=== PATIENT | male | born 1965 | race Caucasian/White ===

== ENCOUNTER 2016-09-28 10:22 | Emergency (ER) | payer MEDICAID ==
[2016-09-28 10:42] VITALS: RESP 18
[2016-09-28] MEDS ORDERED: SODIUM CHLORIDE 0.9% 1,000 ML IV STA (11:01)
[2016-09-28] MEDS ORDERED: RX INFO: IV CONTRAST WAS GIVEN 1 EACH MISC MISCELLANE PRN (11:01)
[2016-09-28] MEDS ORDERED: MORPHINE SULFATE 4 MG/ML SYRINGE IV STA (11:01)
[2016-09-28] MEDS ORDERED: FAMOTIDINE 20 MG/2 ML VIAL IV STA (11:02)
--- NOTE | 2016-09-28 11:06 | ED ---
General Adult HPI - General Chief complaint: Abdominal Pain Stated complaint: Abdominal Time Seen by Provider: 09/28/16 10:54 Source: patient, RN notes reviewed Mode of arrival: ambulatory Limitations: no limitations - History of Present Illness Initial comments: Patient is a pleasant 50-year-old male presenting to the emergency department complaining of abdominal discomfort. Onset was 2 days ago. Symptoms have progressed since that time however there has been some mild waxing and waning. Patient had mild nausea earlier when discomfort at somewhat worse. Discomfort is mostly left lower abdomen however some right lower abdomen and epigastric region. No fevers. Patient has been somewhat constipated. Patient does have a history of possible left inguinal hernia and has an appointment scheduled for surgeon next month. Patient states the hernia has not been hard. He states sometimes the discomfort does radiate towards the hernia. - Related Data Home Medications Medication Instructions Recorded Confirmed Budesonide-Formot 160-4.5 Mcg 2 puff INHALATION RT-DAILY 09/28/16 09/28/16 [Symbicort 160-4.5 Mcg Inhaler] diphenhydrAMINE [Benadryl] 25 mg PO BID PRN 09/28/16 09/28/16 Previous Rx's Medication Instructions Recorded Ciprofloxacin HCl [Cipro] 500 mg PO Q12HR #20 tablet 09/28/16 Hydrocodone/Acetaminophen [[place] 1 each PO Q4HR PRN #15 tab 09/28/16 5-325] metroNIDAZOLE [Flagyl] 500 mg PO TID #30 tab 09/28/16 Allergies Allergy/AdvReac Type Severity Reaction Status Date / Time No Known Allergies Allergy Verified 09/28/16 10:42 Review of Systems ROS Statement: Those systems with pertinent positive or pertinent negative responses have been documented in the HPI. ROS Other: All systems not noted in ROS Statement are negative. Constitutional: Denies: fever Eyes: Denies: eye pain ENT: Denies: ear pain Respiratory: Denies: cough Cardiovascular: Denies: chest pain Endocrine: Denies: fatigue Gastrointestinal: Reports: abdominal pain, constipation Genitourinary: Denies: dysuria Musculoskeletal: Denies: back pain Skin: Denies: rash Neurological: Denies: weakness Past Medical History Past Medical History: Asthma Additional Past Medical History / Comment(s): hernia History of Any Multi-Drug Resistant Organisms: None Reported Past Surgical History: Hernia Repair Past Psychological History: No Psychological Hx Reported Smoking Status: Never smoker Past Alcohol Use History: Occasional Past Drug Use History: None Reported General Exam Limitations: no limitations General appearance: alert, in no apparent distress Head exam: Present: atraumatic Eye exam: Present: normal appearance, PERRL ENT exam: Present: normal oropharynx Neck exam: Present: normal inspection Respiratory exam: Present: normal lung sounds bilaterally Cardiovascular Exam: Present: regular rate, normal rhythm GI/Abdominal exam: Present: soft, tenderness (Mild epigastric tenderness, mild right lower quadrant tenderness, moderate left lower quadrant tenderness. Mild to moderate left upper abdominal tenderness.), guarding (Mild left lower abdomen ), normal bowel sounds. Absent: distended, rebound, rigid, pulsatile mass exam: Present: other (Left inguinal hernia that is easily reducible with mild to moderate discomfort.). Absent: testicular tenderness, scrotal swelling Extremities exam: Present: normal inspection Neurological exam: Present: alert Psychiatric exam: Present: normal affect, normal mood Skin exam: Absent: rash Course Vital Signs 09/28/16 10:37 Temperature 98.6 F Pulse Rate 89 Respiratory 18 Rate Blood Pressure 123/78 O2 Sat by Pulse 97 Oximetry Medical Decision Making - Medical Decision Making Patient examined and resting comfortably in bed. Patient does still have mild tenderness left lower abdomen. Patient and family updated on results and need for follow-up. Patient is comfortable with discharge. - Lab Data Result diagrams: 09/28/16 11:10 09/28/16 11:10 Lab Results 09/28/16 09/28/16 09/28/16 Range/Units 11:10 11:10 11:10 WBC 12.2 H (3.8-10.6) k/uL RBC 5.05 (4.30-5.90) m/uL Hgb 14.5 (13.0-17.5) gm/dL Hct 42.6 (39.0-53.0) % MCV 84.4 (80.0-100.0) fL MCH 28.7 (25.0-35.0) pg MCHC 34.0 (31.0-37.0) g/dL RDW 12.3 (11.5-15.5) % Plt Count 251 (150-450) k/uL Neutrophils % 81 % Lymphocytes % 10 % Monocytes % 5 % Eosinophils % 2 % Basophils % 0 % Neutrophils # 9.9 H (1.3-7.7) k/uL Lymphocytes # 1.3 (1.0-4.8) k/uL Monocytes # 0.6 (0-1.0) k/uL Eosinophils # 0.3 (0-0.7) k/uL Basophils # 0.0 (0-0.2) k/uL PT 11.1 (9.0-12.0) sec INR 1.1 (<1.1) APTT 25.4 (22.0-30.0) sec Sodium 141 (137-145) mmol/L Potassium 4.2 (3.5-5.1) mmol/L Chloride 102 (98-107) mmol/L Carbon Dioxide 28 (22-30) mmol/L Anion Gap 11 mmol/L BUN 12 (9-20) mg/dL Creatinine 0.98 (0.66-1.25) mg/dL Est GFR (MDRD) Af Amer >60 (>60 ml/min/1.73 sqM) Est GFR (MDRD) Non-Af >60 (>60 ml/min/1.73 sqM) Glucose 102 H (74-99) mg/dL Calcium 8.9 (8.4-10.2) mg/dL Total Bilirubin 0.9 (0.2-1.3) mg/dL AST 18 (17-59) U/L ALT 35 (21-72) U/L Alkaline Phosphatase 47 (38-126) U/L Total Protein 7.2 (6.3-8.2) g/dL Albumin 4.0 (3.5-5.0) g/dL Amylase 57 (30-110) U/L Lipase 67 (23-300) U/L - Radiology Data Radiology results: image reviewed (Computed tomography scan shows diverticulitis ) Disposition Clinical Impression: Diverticulitis Disposition: HOME SELF-CARE Condition: Stable Instructions: Diverticulitis (ED), Inguinal Hernia (ED) Additional Instructions: Please follow-up with primary care physician this week. Please follow-up with Dr. Mijares as planned for hernia. Return for fevers, uncontrolled pain, vomiting, worsening symptoms or any other concerns. [id number] stool softener, Colace 3 times daily for the next week. Prescriptions: Ciprofloxacin HCl [Cipro] 500 mg PO Q12HR #20 tablet Hydrocodone/Acetaminophen [[place] 5-325] 1 each PO Q4HR PRN #15 tab PRN Reason: Pain metroNIDAZOLE [Flagyl] 500 mg PO TID #30 tab Referrals: Yanely Bryant MD [Primary Care Provider] - 1-2 days
[2016-09-28 11:35] LABS: Basophils % (A) 0 %; CH 29.2; CHCM 34.7; Eosinophils # (A) 0.3 k/uL (0-0.7); Eosinophils % (A) 2 %; HCT 42.6 % (39.0-53.0); HDW 2.47; HGB 14.5 gm/dL (13.0-17.5); Luc # (Auto) 0.12; Luc % (Auto) 1; Lymphocytes # (A) 1.3 k/uL (1.0-4.8); Lymphocytes % (A) 10 %; MCH 28.7 pg (25.0-35.0); MCV 84.4 fL (80.0-100.0); Mean Platelet Volume 6.2; Monocytes # (A) 0.6 k/uL (0-1.0); Monocytes % (A) 5 %; Neutrophils # (A) 9.9 k/uL (1.3-7.7); Neutrophils % (A) 81 %; RBC 5.05 m/uL (4.30-5.90); RDW 12.3 % (11.5-15.5); WBC 12.2 k/uL (3.8-10.6); WBC (Perox) 12.27
[2016-09-28 11:49] LABS: ALT 35 U/L (21-72); AST 18 U/L (17-59); Alkaline Phosphatase 47 U/L (38-126); Amylase 57 U/L (30-110); Anion Gap 11 mmol/L; Blood Urea Nitrogen 12 mg/dL (9-20); Calcium 8.9 mg/dL (8.4-10.2); Carbon Dioxide 28 mmol/L (22-30); Chloride 102 mmol/L (98-107); Glucose 102 mg/dL (74-99); Non-African American GFR(MDRD) >60 (>60 ml/min/1.73 sqM); Potassium 4.2 mmol/L (3.5-5.1); Sodium 141 mmol/L (137-145); Total Bilirubin 0.9 mg/dL (0.2-1.3); Total Protein 7.2 g/dL (6.3-8.2)
[2016-09-28 11:50] LABS: INR 1.1 (<1.1); Partial Thromboplastin Time 25.4 sec (22.0-30.0); Prothrombin Time 11.1 sec (9.0-12.0)
--- NOTE | 2016-09-28 12:30 | CT ---
EXAMINATION TYPE: CT abdomen pelvis w con DATE OF EXAM: 09/28/2016 12:08 PM COMPARISON: NONE HISTORY: Abdomen and groin pain. decreased bowel movements CT DLP: 418.8 mGycm CONTRAST: CT scan of the abdomen and pelvis is performed without Oral Contrast and with IV Contrast, patient in jected with 100 mL of Omnipaque 300. FINDINGS: LUNG BASES-: No visible nodule. No infiltrate. LIVER/GB: No calcified gallstones. No space occupying hepatic lesion. Biliary tree is of normal ca liber. PANCREAS: No inflammation. No distinct mass. SPLEEN: No splenic enlargement. No lesion seen. ADRENALS: No nodule. No thickening. KIDNEYS/BLADDER: No hydronephrosis. No nephrolithiasis. No disctinct renal mass. Urinary bladder i s not ideally distended however there is wall thickening this could reflect reactive inflammatory elias nge. BOWEL: Normal appendix. Redundant sigmoid colon demonstrates perisigmoid inflammatory change and wall thickening compatible with acute diverticulitis. No definite abscess identified at this time. Distal esophageal thickening may reflect esophagitis. Correlate clinically. GENITAL ORGANS: No gross abnormality. LYMPH NODES: No greater than 1cm abdominal or pelvic lymph nodes are appreciated. AORTA: No significant abnormality. OSSEOUS STRUCTURES: No significant abnormality is seen. OTHER: Left inguinal fat-containing hernia. IMPRESSION: 1. Sigmoid diverticulitis. No definite abscess or free air at this time. 2. Fat-containing left inguinal hernia. 3. Wall thickening distal esophagus may be related to poor distention versus esophagitis. 4. Wall thickening of the urinary bladder may be related to poor distention and/or reactive inflammat ory change.
[2016-09-28] MEDS ORDERED: HYDROcodone/APAP 5-325MG 1 EACH TAB PO STA (13:00)
[2016-09-28 13:03] LABS: Appearance,Urine Clear (Clear); Bilirubin,Urine Negative (Negative); Glucose,Urine (UA) Negative (Negative); Ketones,Urine Trace (Negative); Leukocyte Esterase,Urine Negative (Negative); Mucus,Urine Few /hpf; Nitrite,Urine Negative (Negative); Particle Count 5132; Protein,Urine 1+ (Negative); RBC,Urine 4 /hpf (0-5); Specific Gravity,Urine 1.024 (1.001-1.035); UA Billing (MACRO vs. MICRO) MICRO; WBC,Urine 3 /hpf (0-5)
[2016-09-28 13:18] VITALS: BP 117/72; PULSE 90; TEMP 97.8
== END 2016-09-28 13:32 | disposition home or self-care (01) ==
LOC: EC 10:22
DX: K57.92 Diverticulitis of intestine, part unspecified, without perforation or abscess without bleeding (principal); K40.90 Unilateral inguinal hernia, without obstruction or gangrene, not specified as recurrent; Z79.899 Other long term (current) drug therapy
CPT/HCPCS: 99284; 96374; 96375; 96361; 36415; 80053; 82150; 83690; 85025; 85610; 85730; 81001; 74177; J2270; Q9967

== ENCOUNTER 2016-09-29 17:51 | Inpatient (IN) | payer MEDICAID ==
[2016-09-29] MEDS ORDERED: ONDANSETRON 4 MG/2 ML VIAL IVP STA (20:09)
[2016-09-29] MEDS ORDERED: SODIUM CHLORIDE 0.9% 1,000 ML IV STA (20:09)
[2016-09-29] MEDS ORDERED: MORPHINE SULFATE 4 MG/ML SYRINGE IV STA (20:09)
--- NOTE | 2016-09-29 20:17 | ED ---
Nausea/Vomiting/Diarrhea HPI - General Chief complaint: Nausea/Vomiting/Diarrhea Stated complaint: Vomiting Time Seen by Provider: 09/29/16 20:03 Source: patient, RN notes reviewed Mode of arrival: ambulatory Limitations: no limitations - History of Present Illness Initial comments: 50-year-old male presents emergency Department chief complaint nausea vomiting abdominal pain. Patient states he was seen here yesterday diagnosed with diverticulitis. Patient states that he was sorry medication yesterday but states his been vomiting for the last 8 hours. Patient states he cannot keep anything down. Patient states that his never taken anything his medications in the past. Patient states he initially did take the Flagyl and pain medication without difficulty though states at the second dose and has been vomiting ever since. Patient denies any known fever. Patient does have left lower quadrant abdominal pain. Patient denies any melena or hematochezia. Patient states he is constipated in which she was advised to take softeners and states he has not had any relief. - Related Data Home Medications Medication Instructions Recorded Confirmed Budesonide-Formot 160-4.5 Mcg 2 puff INHALATION RT-DAILY 09/28/16 09/29/16 [Symbicort 160-4.5 Mcg Inhaler] Docusate [Colace] 300 mg PO BID PRN 09/29/16 09/29/16 Hydrocodone/Acetaminophen [[place] 1 tab PO Q4HR PRN 09/29/16 09/29/16 5-325] Previous Rx's Medication Instructions Recorded Ciprofloxacin HCl [Cipro] 500 mg PO Q12HR #20 tablet 09/28/16 metroNIDAZOLE [Flagyl] 500 mg PO TID #30 tab 09/28/16 Allergies Allergy/AdvReac Type Severity Reaction Status Date / Time No Known Allergies Allergy Verified 09/29/16 20:18 Review of Systems ROS Statement: Those systems with pertinent positive or pertinent negative responses have been documented in the HPI. ROS Other: All systems not noted in ROS Statement are negative. Past Medical History Past Medical History: Asthma Additional Past Medical History / Comment(s): hernia History of Any Multi-Drug Resistant Organisms: None Reported Past Surgical History: Hernia Repair Past Psychological History: No Psychological Hx Reported Smoking Status: Never smoker Past Alcohol Use History: Occasional Past Drug Use History: None Reported General Exam Limitations: no limitations General appearance: alert, in no apparent distress Head exam: Present: atraumatic, normocephalic, normal inspection Respiratory exam: Present: normal lung sounds bilaterally. Absent: respiratory distress, wheezes, rales, rhonchi, stridor Cardiovascular Exam: Present: regular rate, normal rhythm, normal heart sounds. Absent: systolic murmur, diastolic murmur, rubs, gallop, clicks GI/Abdominal exam: Present: soft, tenderness (Moderate tenderness left lower quadrant), normal bowel sounds. Absent: distended, guarding, rebound, rigid Back exam: Absent: CVA tenderness (R), CVA tenderness (L) Course Vital Signs 09/29/16 18:07 Temperature 98.1 F Pulse Rate 75 Respiratory 18 Rate Blood Pressure 128/78 O2 Sat by Pulse 97 Oximetry Medical Decision Making - Lab Data Result diagrams: 09/29/16 20:20 09/29/16 20:20 Lab Results 09/29/16 09/29/16 Range/Units 20:20 20:20 WBC 14.4 H (3.8-10.6) k/uL RBC 4.89 (4.30-5.90) m/uL Hgb 13.8 (13.0-17.5) gm/dL Hct 41.0 (39.0-53.0) % MCV 83.8 (80.0-100.0) fL MCH 28.2 (25.0-35.0) pg MCHC 33.7 (31.0-37.0) g/dL RDW 12.2 (11.5-15.5) % Plt Count 255 (150-450) k/uL Neutrophils % 85 % Lymphocytes % 6 % Monocytes % 6 % Eosinophils % 1 % Basophils % 0 % Neutrophils # 12.3 H (1.3-7.7) k/uL Lymphocytes # 0.9 L (1.0-4.8) k/uL Monocytes # 0.9 (0-1.0) k/uL Eosinophils # 0.1 (0-0.7) k/uL Basophils # 0.0 (0-0.2) k/uL Sodium 142 (137-145) mmol/L Potassium 4.1 (3.5-5.1) mmol/L Chloride 100 (98-107) mmol/L Carbon Dioxide 28 (22-30) mmol/L Anion Gap 14 mmol/L BUN 13 (9-20) mg/dL Creatinine 0.80 (0.66-1.25) mg/dL Est GFR (MDRD) Af Amer >60 (>60 ml/min/1.73 sqM) Est GFR (MDRD) Non-Af >60 (>60 ml/min/1.73 sqM) Glucose 135 H (74-99) mg/dL Calcium 8.9 (8.4-10.2) mg/dL Total Bilirubin 0.7 (0.2-1.3) mg/dL AST 17 (17-59) U/L ALT 34 (21-72) U/L Alkaline Phosphatase 60 (38-126) U/L Total Protein 7.1 (6.3-8.2) g/dL Albumin 4.0 (3.5-5.0) g/dL Amylase 63 (30-110) U/L Lipase 385 H (23-300) U/L Disposition Clinical Impression: Diverticulitis, Abdominal pain Disposition: ADMITTED IP TO THIS [facility] Condition: Stable
[2016-09-29 20:52] LABS: ALT 34 U/L (21-72); AST 17 U/L (17-59); Alkaline Phosphatase 60 U/L (38-126); Amylase 63 U/L (30-110); Anion Gap 14 mmol/L; Blood Urea Nitrogen 13 mg/dL (9-20); Calcium 8.9 mg/dL (8.4-10.2); Carbon Dioxide 28 mmol/L (22-30); Chloride 100 mmol/L (98-107); Glucose 135 mg/dL (74-99); Non-African American GFR(MDRD) >60 (>60 ml/min/1.73 sqM); Potassium 4.1 mmol/L (3.5-5.1); Sodium 142 mmol/L (137-145); Total Bilirubin 0.7 mg/dL (0.2-1.3); Total Protein 7.1 g/dL (6.3-8.2)
[2016-09-29 20:55] LABS: Basophils % (A) 0 %; CH 29.3; CHCM 35.1; Eosinophils # (A) 0.1 k/uL (0-0.7); Eosinophils % (A) 1 %; HDW 2.52; HGB 13.8 gm/dL (13.0-17.5); Luc # (Auto) 0.13; Luc % (Auto) 1; Lymphocytes # (A) 0.9 k/uL (1.0-4.8); Lymphocytes % (A) 6 %; MCH 28.2 pg (25.0-35.0); MCHC 33.7 g/dL (31.0-37.0); MCV 83.8 fL (80.0-100.0); Mean Platelet Volume 6.3; Monocytes # (A) 0.9 k/uL (0-1.0); Monocytes % (A) 6 %; Neutrophils # (A) 12.3 k/uL (1.3-7.7); Neutrophils % (A) 85 %; RBC 4.89 m/uL (4.30-5.90); RDW 12.2 % (11.5-15.5); WBC 14.4 k/uL (3.8-10.6); WBC (Perox) 14.71
--- NOTE | 2016-09-29 21:10 | XR ---
Abdomen HISTORY: Diverticulitis, nausea and vomiting Correlation to CT abdomen pelvis August Lung bases are clear. There is no pneumoperitoneum or bowel obstruction. Large amount of retained fec al debris is present within the colon. CT shows some possible local microperforation. Bone mineraliza tion is within normal limits. IMPRESSION: No pneumoperitoneum. Local microperforation suggested on CT.
[2016-09-29] MEDS ORDERED: metroNIDAZOLE-NS PMX 500 MG in SALINE 1 100ML.BAG IVPB STA (21:14)
[2016-09-29] MEDS ORDERED: LEVOFLOXACIN 750MG-D5W PMX 750 MG in DEXTROSE/WATER 1 150ML.BAG IVPB STA (21:14)
[2016-09-29] MEDS ORDERED: LEVOFLOXACIN 750MG-D5W PMX 750 MG in DEXTROSE/WATER 1 150ML.BAG IVPB SCH (21:15)
[2016-09-29] MEDS ORDERED: NALOXONE 0.4 MG/ML 1 ML VIAL IV PRN (21:23)
[2016-09-30 00:25] VITALS: BMI 25.5
[2016-09-30] MEDS ORDERED: PANTOPRAZOLE 40 MG/10 ML VIAL IVP STA (00:58)
[2016-09-30] MEDS: PANTOPRAZOLE 40 MG/10 ML VIAL IV SCH (01:08)
[2016-09-30] MEDS: SODIUM CHLORIDE 0.9% 1,000 ML IV SCH ×2 (01:16→17:39)
[2016-09-30 01:34] LABS: Appearance,Urine Clear (Clear); Bilirubin,Urine Negative (Negative); Glucose,Urine (UA) Negative (Negative); Ketones,Urine 1+ (Negative); Leukocyte Esterase,Urine Negative (Negative); Mucus,Urine Moderate /hpf; Nitrite,Urine Negative (Negative); Particle Count 7821; Protein,Urine 1+ (Negative); RBC,Urine 1 /hpf (0-5); Specific Gravity,Urine 1.025 (1.001-1.035); UA Billing (MACRO vs. MICRO) MICRO; Urobilinogen,Urine <2.0 mg/dL (<2.0); WBC,Urine 1 /hpf (0-5)
[2016-09-30] MEDS: metroNIDAZOLE-NS PMX 500 MG in SALINE 1 100ML.BAG IVPB SCH ×2 (08:42→17:40)
[2016-09-30] MEDS: MORPHINE SULFATE 4 MG/ML SYRINGE IV PRN ×2 (08:46→17:43)
[2016-09-30] MEDS: ONDANSETRON 4 MG/2 ML VIAL IVP PRN ×2 (11:58→20:29)
--- NOTE | 2016-09-30 11:58 | P.GSCN ---
History of Present Illness Consult date: 09/30/16 Reason for Consult: Diverticulitis History of present illness: Patient with pain that began 3 days ago. He came to the ER for evaluation. He was given oral antibiotics and discharged. At the time a CAT scan suggested diverticulitis with extraluminal air. He was feeling more nauseous with persistent pain and came back to the hospital yesterday. Had a colonoscopy several years ago that he states was normal. No prior attacks of diverticulitis. He does have a left inguinal hernia that he was concerned may have been causing his problems. He has had some recent constipation. No bowel movement for the last few days. He is passing flatus. Review of Systems The patient denies any acute changes in his vision or hearing, no dysphagia or odynophagia, no chest pain or shortness of breath, no dysuria or hematuria, no headache, no runny nose, no rectal bleeding or melena, no unexplained weight loss Past Medical History Past Medical History: Asthma Additional Past Medical History / Comment(s): hernia History of Any Multi-Drug Resistant Organisms: None Reported Past Surgical History: Hernia Repair Past Anesthesia/Blood Transfusion Reactions: No Reported Reaction Past Psychological History: No Psychological Hx Reported Smoking Status: Never smoker Past Alcohol Use History: Occasional Past Drug Use History: None Reported - Past Family History Father Family Medical History: Cancer Medications and Allergies Home Medications Medication Instructions Recorded Confirmed Type Budesonide-Formot 160-4.5 Mcg 2 puff INHALATION RT-DAILY 09/28/16 09/30/16 History [Symbicort 160-4.5 Mcg Inhaler] Docusate [Colace] 300 mg PO BID PRN 09/29/16 09/30/16 History Hydrocodone/Acetaminophen [[place] 1 tab PO Q4HR PRN 09/29/16 09/30/16 History 5-325] Allergies Allergy/AdvReac Type Severity Reaction Status Date / Time No Known Allergies Allergy Verified 09/30/16 00:14 Surgical - Exam Vital Signs Temp Pulse Resp BP Pulse Ox 98.1 F 75 18 128/78 97 09/29/16 18:07 09/29/16 18:07 09/29/16 18:07 09/29/16 18:07 09/29/16 18:07 Physical exam: General: Well-developed, well-nourished HEENT: Normocephalic, sclerae nonicteric Abdomen: Mild supra view tenderness, no rebound or guarding Extremities: No edema Neuro: Alert and oriented Results - Labs 09/29/16 20:20 09/29/16 20:20 Assessment and Plan (1) Diverticulitis Narrative/Plan: Continue clear liquid diet. Continue IV antibiotics. We'll consider follow-up CAT scan in 1 week. Will follow with you. Status: Acute
--- NOTE | 2016-09-30 18:52 | P.HPIM ---
History of Present Illness H&P Date: 09/30/16 Chief Complaint: Acute diverticulitis with microperforation This is a 50-year-old male one of my patient with a previous medical history significant for asthma, GERD, hyperlipidemia, eczema, and diverticulosis patient was in his usual state of health about Wednesday when he came back from work and he developed to have an increased bowel pain associated with nausea and poor appetite, patient ended up going to the emergency department at [facility] and had a computed tomography scan of the abdomen and pelvis with contrast that showed diverticulitis with microperforation patient was started on IV antibiotic in the ER was given IV fluid and IV pain medicine he was sent home on ciprofloxacin and Flagyl and patient was supposed to follow-up with me as an outpatient and underwent week, patient continued to have significant abdominal pain associated with nausea and vomiting not able to keep anything down, patient was contacted yesterday to go to the ER and he was indeed on the way to the emergency department for evaluation and subsequently he was admitted to the hospital because of failed outpatient management. General surgery consultation was obtained from Dr. Mancera. Review of Systems Constitutional: Reports anorexia, Reports malaise, Reports weakness, Denies chills, Denies chronic headaches, Denies chronic pain, Denies fatigue, Denies fever, Denies weight gain, Denies weight loss Eyes: denies blurred vision, denies bulging eye, denies decreased vision, denies diplopia Ears: deny: decreased hearing Ears, nose, mouth and throat: Denies dysphagia, Denies neck fullness/pressure, Denies neck lump, Denies swelling in throat, Denies sore throat Cardiovascular: Denies chest pain, Denies dyspnea on exertion, Denies edema, Denies high blood pressure, Denies paroxysmal nocturnal dyspnea, Denies phlebitis, Denies rapid heart beat, Denies shortness of breath, Denies syncope Respiratory: Denies congestion, Denies cough, Denies cough with sputum, Denies home oxygen, Denies sleep apnea, Denies snoring, Denies wheezing Gastrointestinal: Reports abdominal pain, Reports bloating, Reports change in bowel habits, Reports constipation, Reports excessive gas, Reports indigestion, Reports loss of appetite, Reports nausea, Reports vomiting, Denies BRBPR, Denies diarrhea, Denies dyspepsia, Denies early satiety, Denies hematochezia, Denies jaundice, Denies lactose intolerance, Denies melena Genitourinary: Denies dysuria, Denies nocturia, Denies polyuria Musculoskeletal: Denies myalgias Musculoskeletal: absent: ankle pain, ankle stiffness, ankle swelling, elbow pain , elbow stiffness, elbow swelling, foot pain, foot stiffness, foot swelling, hand pain, hand stiffness, hand swelling, hip pain, hip stiffness, hip swelling , knee pain, knee stiffness, knee swelling, shoulder pain, shoulder stiffness, shoulder swelling, wrist pain, wrist stiffness, wrist swelling Integumentary: Denies pruritus, Denies rash Neurological: Denies numbness, Denies weakness Psychiatric: Denies anxiety, Denies depression Endocrine: Denies fatigue, Denies weight change Past Medical History Past Medical History: Asthma, GERD/Reflux, Hyperlipidemia, Skin Disorder ( Eczema.) Additional Past Medical History / Comment(s): hernia History of Any Multi-Drug Resistant Organisms: None Reported Past Surgical History: Hernia Repair Additional Past Surgical History / Comment(s): Double hernia repair as well as sinus surgery in 2000 Past Anesthesia/Blood Transfusion Reactions: No Reported Reaction Past Psychological History: No Psychological Hx Reported Smoking Status: Never smoker Past Alcohol Use History: Occasional Past Drug Use History: None Reported - Past Family History Father Family Medical History: Cancer (Father at age of 62 from multiple myeloma as well as gastric cancer) Mother Family Medical History: No Reported History (Mother is alive she 75-year-old.) Brother(s) Family Medical History: No Reported History (Patient has 3 brothers no major medical problems.) Sister(s) Family Medical History: No Reported History (Patient has 2 sisters no major medical problems.) Medications and Allergies Home Medications Medication Instructions Recorded Confirmed Type Budesonide-Formot 160-4.5 Mcg 2 puff INHALATION RT-DAILY 09/28/16 09/30/16 History [Symbicort 160-4.5 Mcg Inhaler] Docusate [Colace] 300 mg PO BID PRN 09/29/16 09/30/16 History Hydrocodone/Acetaminophen [[place] 1 tab PO Q4HR PRN 09/29/16 09/30/16 History 5-325] Allergies Allergy/AdvReac Type Severity Reaction Status Date / Time No Known Allergies Allergy Verified 09/30/16 00:14 Physical Exam Vitals: Vital Signs Temp Pulse Pulse Resp BP BP Pulse Ox 09/30/16 15:00 97.4 F L 96 18 111/65 96 09/30/16 07:00 98.2 F 73 18 105/57 96 09/30/16 00:19 98.2 F 78 17 133/85 100 09/29/16 23:58 98.6 F 80 18 122/76 99 09/29/16 21:31 99.4 F 78 18 106/65 95 Intake and Output 09/30/16 09/30/16 09/30/16 06:59 14:59 22:59 Intake Total 300 600 Output Total 500 Balance -200 600 Intake: IV 300 600 Sodium Chloride 0.9% 1, 300 600 000 ml @ 75 mls/hr IV . [id number] [facility] Rx#:[id number] Output: Urine 500 Other: Voiding Method Toilet Toilet Toilet # Voids 1 Weight 73.936 kg - Constitutional General appearance: mild distress, thin - EENT Eyes: anicteric sclerae, disc margins sharp, PERRLA, no ptosis, no scleral icterus, normal appearance ENT: normal oropharynx, no thrush, no tonsillar exudates Ears: bilateral: normal - Neck Neck: no lymphadenopathy, normal ROM, no rigidity, no stridor, no thyromegaly Carotids: bilateral: upstroke normal Thyroid: bilateral: normal size - Respiratory Respiratory: bilateral: diminished, negative: dullness, rales, rhonchi, wheezing , prolonged expiration - Cardiovascular Rhythm: regular Heart sounds: normal: S1, S2 Abnormal Heart Sounds: no systolic murmur, no diastolic murmur, no rub, no S3 Gallop, no S4 Gallop, no click - Gastrointestinal General gastrointestinal: distended, normal bowel sounds, soft, no splenomegaly , tenderness, no umbilical hernia, no ventral hernia Localized gastrointestinal: tender: LLQ, guarding: LLQ, rebound: LLQ - Integumentary Integumentary: normal, normal turgor - Neurologic Neurologic: CNII-XII intact - Musculoskeletal Musculoskeletal: gait normal, generalized weakness, strength equal bilaterally - Psychiatric Psychiatric: A&O x's 3, appropriate affect, intact judgment & insight Results CBC & Chem 7: 09/29/16 20:20 01/31/17 20:20 Thrombosis Risk Factor Assmnt - DVT/VTE Prophylaxis DVT/VTE Prophylaxis: Pharmacologic Prophylaxis ordered, Mechanical Prophylaxis ordered - Choose All That Apply Any of the Below Risk Factors Present?: Yes Each Factor Represents 1 point: Age 41-60 years, Obesity (BMI >25) Other Risk Factors: No Other congenital or acquired thrombophilia - If yes, enter type in comment: No Thrombosis Risk Factor Assessment Total Risk Factor Score: 2 Thrombosis Risk Factor Assessment Level: Low Risk Assessment and Plan Plan: Assessment and plan: 1. Acute diverticulitis with microperforation. Continue Levaquin 750 mg IV piggyback every 24 hours, metronidazole 500 mg IV piggyback every 8 hours, continue on nothing per mouth except for clear liquid diet, continue current pain management, general surgery consultation from Dr. Mancera. Continue current pain management with morphine 4 mg IV push every 4 hours as needed. 2. History of asthma. Continue albuterol 2.5 mg nebulization as needed. 3. History of eczema. Stable at this time. 4. GERD. Continue Protonix 40 mg IV push every 24 hours. 5. Hyperlipidemia. Stable. 6. DVT prophylaxis. Bilateral knee-high GUY hose, heparin 5000 units subcutaneously every 12 hours. 7. GI prophylaxis. Continue Protonix 40 mg IV push every 24 hours. 8. Admit to inpatient. Estimate a length of stay 2 midnights. 9. Patient is full code.
[2016-09-30] MEDS: LEVOFLOXACIN 750MG-D5W PMX 750 MG in DEXTROSE/WATER 1 150ML.BAG IVPB SCH (23:02)
[2016-10-01] MEDS: metroNIDAZOLE-NS PMX 500 MG in SALINE 1 100ML.BAG IVPB SCH ×3 (00:11→16:38)
[2016-10-01] MEDS: ONDANSETRON 4 MG/2 ML VIAL IVP PRN ×2 (07:20→14:30)
[2016-10-01] MEDS: MORPHINE SULFATE 4 MG/ML SYRINGE IV PRN ×2 (07:20→14:30)
[2016-10-01] MEDS: PANTOPRAZOLE 40 MG/10 ML VIAL IV SCH (07:23)
[2016-10-01 09:22] LABS: Basophils % (A) 0 %; CH 28.8; CHCM 33.9; Eosinophils # (A) 0.1 k/uL (0-0.7); Eosinophils % (A) 1 %; HCT 36.7 % (39.0-53.0); HDW 2.65; HGB 12.1 gm/dL (13.0-17.5); Luc # (Auto) 0.14; Luc % (Auto) 1; Lymphocytes # (A) 0.9 k/uL (1.0-4.8); Lymphocytes % (A) 9 %; MCHC 32.9 g/dL (31.0-37.0); MCV 85.2 fL (80.0-100.0); Monocytes # (A) 0.6 k/uL (0-1.0); Monocytes % (A) 6 %; Neutrophils # (A) 8.1 k/uL (1.3-7.7); Neutrophils % (A) 82 %; RBC 4.31 m/uL (4.30-5.90); RDW 12.1 % (11.5-15.5); WBC 9.9 k/uL (3.8-10.6); WBC (Perox) 10.74
[2016-10-01] MEDS: SODIUM CHLORIDE 0.9% 1,000 ML IV SCH ×2 (11:05→19:27)
--- NOTE | 2016-10-01 14:38 | P.PN ---
Subjective Principal diagnosis: Diverticulitis Patient with decreased abdominal pain. White blood cell count normal at 9.9. Denies nausea or vomiting. He is tolerating small volumes of clear liquids. Small amount of flatus. No bowel movements. Complaining of some heartburn. Objective - Vital Signs Vital signs: Vital Signs Temp 98.0 F 10/01/16 07:00 Pulse 72 10/01/16 07:00 Resp 18 10/01/16 07:00 BP 125/69 10/01/16 07:00 Pulse Ox 96 10/01/16 07:00 Intake & Output 09/30/16 10/01/16 10/01/16 18:59 06:59 18:59 Intake Total 600 775 Balance 600 775 Intake: IV 600 775 Levofloxacin 750Mg-D5w 150 Pmx 750 mg In Dextrose/ Water 1 150ml.bag @ 100 mls/hr IVPB Q24H N[facility]O Rx#: [id number] Sodium Chloride 0.9% 1, 600 525 000 ml @ 75 mls/hr IV . [id number] NANDO Rx#:[id number] metroNIDAZOLE-NS PMX 500 100 mg In Saline 1 100ml.bag @ 100 mls/hr IVPB Q8HR NANDO Rx#:[id number] Other: Voiding Method Toilet Toilet Toilet # Voids 1 - Exam Abdomen: Soft, nondistended, mild superpubic tenderness - Labs CBC & Chem 7: 10/01/16 08:55 09/29/16 20:20 Labs: Abnormal Lab Results - Last 24 Hours (Table) 10/01/16 Range/Units 08:55 Hgb 12.1 L (13.0-17.5) gm/dL Hct 36.7 L (39.0-53.0) % Neutrophils # 8.1 H (1.3-7.7) k/uL Lymphocytes # 0.9 L (1.0-4.8) k/uL Assessment and Plan (1) Diverticulitis Narrative/Plan: Continue clear liquids. Continue IV antibiotics. Increase ambulation. Status: Acute
--- NOTE | 2016-10-01 15:53 | P.PN ---
Subjective This is a 50-year-old male one of my patient with a previous medical history significant for asthma, GERD, hyperlipidemia, eczema, and diverticulosis patient was in his usual state of health about Wednesday when he came back from work and he developed to have an increased bowel pain associated with nausea and poor appetite, patient ended up going to the emergency department at [facility] and had a computed tomography scan of the abdomen and pelvis with contrast that showed diverticulitis with microperforation patient was started on IV antibiotic in the ER was given IV fluid and IV pain medicine he was sent home on ciprofloxacin and Flagyl and patient was supposed to follow-up with me as an outpatient and underwent week, patient continued to have significant abdominal pain associated with nausea and vomiting not able to keep anything down, patient was contacted yesterday to go to the ER and he was indeed on the way to the emergency department for evaluation and subsequently he was admitted to the hospital because of failed outpatient management. General surgery consultation was obtained from Dr. Mancera. 10/01: White count is 9.9 and hemoglobin 12.1. His abdominal pain is improved from yesterday. No nausea or vomiting. He is tolerating clear liquids. He is continued on levaquin and flagyl. Objective - Vital Signs Vital signs: Vital Signs Temp 98.0 F 10/01/16 07:00 Pulse 72 10/01/16 07:00 Resp 18 10/01/16 07:00 BP 125/69 10/01/16 07:00 Pulse Ox 96 10/01/16 07:00 Intake & Output 09/30/16 10/01/16 10/01/16 18:59 06:59 18:59 Intake Total 600 775 Balance 600 775 Intake: IV 600 775 Levofloxacin 750Mg-D5w 150 Pmx 750 mg In Dextrose/ Water 1 150ml.bag @ 100 mls/hr IVPB Q24H [facility]O Rx#: [id number] Sodium Chloride 0.9% 1, 600 525 000 ml @ 75 mls/hr IV . [id number] NANDO Rx#:[id number] metroNIDAZOLE-NS PMX 500 100 mg In Saline 1 100ml.bag @ 100 mls/hr IVPB Q8HR NANDO Rx#:[id number] Other: Voiding Method Toilet Toilet Toilet # Voids 1 - Exam General appearance: mild distress, thin - EENT Eyes: anicteric sclerae, disc margins sharp, PERRLA, no ptosis, no scleral icterus, normal appearance ENT: normal oropharynx, no thrush, no tonsillar exudates Ears: bilateral: normal - Neck Neck: no lymphadenopathy, normal ROM, no rigidity, no stridor, no thyromegaly Carotids: bilateral: upstroke normal Thyroid: bilateral: normal size - Respiratory Respiratory: bilateral: diminished, negative: dullness, rales, rhonchi, wheezing , prolonged expiration - Cardiovascular Rhythm: regular Heart sounds: normal: S1, S2 Abnormal Heart Sounds: no systolic murmur, no diastolic murmur, no rub, no S3 Gallop, no S4 Gallop, no click - Gastrointestinal General gastrointestinal: distended, normal bowel sounds, soft, no splenomegaly , tenderness, no umbilical hernia, no ventral hernia Localized gastrointestinal: tender: LLQ, guarding: LLQ, rebound: LLQ - Integumentary Integumentary: normal, normal turgor - Neurologic Neurologic: CNII-XII intact - Musculoskeletal Musculoskeletal: gait normal, generalized weakness, strength equal bilaterally - Psychiatric Psychiatric: A&O x's 3, appropriate affect, intact judgment & insight - Labs CBC & Chem 7: 10/01/16 08:55 09/29/16 20:20 Labs: Abnormal Lab Results - Last 24 Hours (Table) 10/01/16 Range/Units 08:55 Hgb 12.1 L (13.0-17.5) gm/dL Hct 36.7 L (39.0-53.0) % Neutrophils # 8.1 H (1.3-7.7) k/uL Lymphocytes # 0.9 L (1.0-4.8) k/uL Assessment and Plan Plan: 1. Acute diverticulitis with microperforation. Continue Levaquin 750 mg IV piggyback every 24 hours, metronidazole 500 mg IV piggyback every 8 hours, continue clear liquid diet, continue current pain management, general surgery consultation from Dr. Mancera. Continue current pain management with morphine 4 mg IV push every 4 hours as needed. 2. History of asthma. Continue albuterol 2.5 mg nebulization as needed. 3. History of eczema. Stable at this time. 4. GERD. Continue Protonix 40 mg IV push every 24 hours. 5. Hyperlipidemia. Stable. 6. DVT prophylaxis. Bilateral knee-high GUY hose, heparin 5000 units subcutaneously every 12 hours. 7. GI prophylaxis. Continue Protonix 40 mg IV push every 24 hours. 8. Admit to inpatient. Estimate a length of stay 2 midnights. 9. Patient is full code. Discharge plan: Return home Impression and plan of care have been directed as dictated by the signing physician. Olivia Iniguez nurse practitioner acting as scribe for signing physician. Time with Patient: Greater than 30
[2016-10-01] MEDS: LEVOFLOXACIN 750MG-D5W PMX 750 MG in DEXTROSE/WATER 1 150ML.BAG IVPB SCH (22:50)
[2016-10-02] MEDS: metroNIDAZOLE-NS PMX 500 MG in SALINE 1 100ML.BAG IVPB SCH ×4 (00:46→23:41)
[2016-10-02] MEDS: ONDANSETRON 4 MG/2 ML VIAL IVP PRN (02:43)
[2016-10-02] MEDS: SODIUM CHLORIDE 0.9% 1,000 ML IV SCH ×2 (04:07→20:59)
[2016-10-02 07:44] LABS: Basophils % (A) 0 %; CH 28.6; CHCM 33.4; Eosinophils # (A) 0.1 k/uL (0-0.7); Eosinophils % (A) 1 %; HDW 2.74; Luc # (Auto) 0.13; Luc % (Auto) 1; Lymphocytes # (A) 1.4 k/uL (1.0-4.8); Lymphocytes % (A) 15 %; MCH 27.8 pg (25.0-35.0); MCHC 32.4 g/dL (31.0-37.0); MCV 85.9 fL (80.0-100.0); Monocytes # (A) 0.6 k/uL (0-1.0); Monocytes % (A) 6 %; Neutrophils # (A) 6.9 k/uL (1.3-7.7); Neutrophils % (A) 76 %; RBC 4.66 m/uL (4.30-5.90); WBC 9.1 k/uL (3.8-10.6); WBC (Perox) 9.54
[2016-10-02] MEDS: PANTOPRAZOLE 40 MG/10 ML VIAL IV SCH (07:50)
--- NOTE | 2016-10-02 16:17 | P.PN ---
Subjective This is a 50-year-old male one of my patient with a previous medical history significant for asthma, GERD, hyperlipidemia, eczema, and diverticulosis patient was in his usual state of health about Wednesday when he came back from work and he developed to have an increased bowel pain associated with nausea and poor appetite, patient ended up going to the emergency department at [facility] and had a computed tomography scan of the abdomen and pelvis with contrast that showed diverticulitis with microperforation patient was started on IV antibiotic in the ER was given IV fluid and IV pain medicine he was sent home on ciprofloxacin and Flagyl and patient was supposed to follow-up with me as an outpatient and underwent week, patient continued to have significant abdominal pain associated with nausea and vomiting not able to keep anything down, patient was contacted yesterday to go to the ER and he was indeed on the way to the emergency department for evaluation and subsequently he was admitted to the hospital because of failed outpatient management. General surgery consultation was obtained from Dr. Mancera. 10/01: White count is 9.9 and hemoglobin 12.1. His abdominal pain is improved from yesterday. No nausea or vomiting. He is tolerating clear liquids. He is continued on levaquin and flagyl. 10/02: HGB 13, WBC 9. He is tolerating clear liquids and willing to try full liquids which have been ordered for dinner. Objective - Vital Signs Vital signs: Vital Signs Temp 97.8 F 10/02/16 07:00 Pulse 79 10/02/16 07:00 Resp 16 10/02/16 07:00 BP 129/79 10/02/16 07:00 Pulse Ox 96 10/02/16 07:00 Intake & Output 10/01/16 10/02/16 10/02/16 18:59 06:59 18:59 Intake Total 1340 Balance 1340 Intake: IV 850 Levofloxacin 750Mg-D5w 150 Pmx 750 mg In Dextrose/ Water 1 150ml.bag @ 100 mls/hr IVPB Q24H [facility]O Rx#: [id number] Sodium Chloride 0.9% 1, 600 000 ml @ 75 mls/hr IV . [id number] [facility]O Rx#:[id number] metroNIDAZOLE-NS PMX 500 100 mg In Saline 1 100ml.bag @ 100 mls/hr IVPB Q8HR N[facility]O Rx#:[id number] Oral 490 Other: Voiding Method Toilet Toilet Toilet # Voids 1 2 - Exam General appearance: mild distress, thin - EENT Eyes: anicteric sclerae, disc margins sharp, PERRLA, no ptosis, no scleral icterus, normal appearance ENT: normal oropharynx, no thrush, no tonsillar exudates Ears: bilateral: normal - Neck Neck: no lymphadenopathy, normal ROM, no rigidity, no stridor, no thyromegaly Carotids: bilateral: upstroke normal Thyroid: bilateral: normal size - Respiratory Respiratory: bilateral: diminished, negative: dullness, rales, rhonchi, wheezing , prolonged expiration - Cardiovascular Rhythm: regular Heart sounds: normal: S1, S2 Abnormal Heart Sounds: no systolic murmur, no diastolic murmur, no rub, no S3 Gallop, no S4 Gallop, no click - Gastrointestinal General gastrointestinal: distended, normal bowel sounds, soft, no splenomegaly , tenderness, no umbilical hernia, no ventral hernia Localized gastrointestinal: tender: LLQ, guarding: LLQ, rebound: LLQ - Integumentary Integumentary: normal, normal turgor - Neurologic Neurologic: CNII-XII intact - Musculoskeletal Musculoskeletal: gait normal, generalized weakness, strength equal bilaterally - Psychiatric Psychiatric: A&O x's 3, appropriate affect, intact judgment & insight - Labs CBC & Chem 7: 10/02/16 07:07 09/29/16 20:20 Assessment and Plan Plan: 1. Acute diverticulitis with microperforation. Continue Levaquin 750 mg IV piggyback every 24 hours, metronidazole 500 mg IV piggyback every 8 hours, continue full liquid diet, continue current pain management, general surgery consultation from Dr. Mancera. Continue current pain management with morphine 4 mg IV push every 4 hours as needed. 2. History of asthma. Continue albuterol 2.5 mg nebulization as needed. 3. History of eczema. Stable at this time. 4. GERD. Continue Protonix 40 mg IV push every 24 hours. 5. Hyperlipidemia. Stable. 6. DVT prophylaxis. Bilateral knee-high GUY hose, heparin 5000 units subcutaneously every 12 hours. 7. GI prophylaxis. Continue Protonix 40 mg IV push every 24 hours. 8. Admit to inpatient. Estimate a length of stay 2 midnights. 9. Patient is full code. Discharge plan: Return home Impression and plan of care have been directed as dictated by the signing physician. Olivia Iniguez nurse practitioner acting as scribe for signing physician. Time with Patient: Greater than 30
--- NOTE | 2016-10-02 17:32 | P.PN ---
Subjective Principal diagnosis: Diverticulitis Patient doing better today. Pain is improved. He still is passing flatus but no bowel movement. He is ambulating. He is afebrile. Objective - Vital Signs Vital signs: Vital Signs Temp 97.5 F L 10/02/16 16:24 Pulse 83 10/02/16 16:24 Resp 19 10/02/16 16:24 BP 109/57 10/02/16 16:24 Pulse Ox 94 L 10/02/16 16:24 Intake & Output 10/01/16 10/02/16 10/02/16 18:59 06:59 18:59 Intake Total 1340 625 Balance 1340 625 Weight 73.936 kg Intake: IV 850 625 Levofloxacin 750Mg-D5w 150 Pmx 750 mg In Dextrose/ Water 1 150ml.bag @ 100 mls/hr IVPB Q24H [facility] Rx#: [id number] Sodium Chloride 0.9% 1, 600 525 000 ml @ 75 mls/hr IV . [id number] N[facility]O Rx#:[id number] metroNIDAZOLE-NS PMX 500 100 100 mg In Saline 1 100ml.bag @ 100 mls/hr IVPB Q8HR [facility]ANDO Rx#:[id number] Oral 490 Other: Voiding Method Toilet Toilet Toilet # Voids 1 2 - Exam Abdomen: Soft, nondistended, mild left lower quadrant tenderness - Labs CBC & Chem 7: 10/02/16 07:07 09/29/16 20:20 Assessment and Plan (1) Diverticulitis Narrative/Plan: Agree with advancing diet. Continue antibiotics. Hopefully discharge tomorrow. Status: Acute
[2016-10-02] MEDS: LEVOFLOXACIN 750MG-D5W PMX 750 MG in DEXTROSE/WATER 1 150ML.BAG IVPB SCH (20:56)
[2016-10-02 21:16] VITALS: RESP 16
[2016-10-02] MEDS: ACETAMINOPHEN TAB 325 MG TAB PO PRN (23:52)
[2016-10-03] MEDS: ACETAMINOPHEN TAB 325 MG TAB PO PRN ×2 (05:51→12:46)
[2016-10-03 07:34] VITALS: BP 137/85; PULSE 70; TEMP 97.7
[2016-10-03 07:41] LABS: Basophils % (A) 0 %; CH 29.1; CHCM 34.7; Eosinophils # (A) 0.1 k/uL (0-0.7); Eosinophils % (A) 1 %; HCT 34.2 % (39.0-53.0); HDW 2.76; HGB 11.6 gm/dL (13.0-17.5); Luc % (Auto) 1; Lymphocytes # (A) 1.1 k/uL (1.0-4.8); Lymphocytes % (A) 12 %; MCH 28.4 pg (25.0-35.0); MCHC 33.8 g/dL (31.0-37.0); MCV 84.1 fL (80.0-100.0); Mean Platelet Volume 6.8; Monocytes # (A) 0.6 k/uL (0-1.0); Monocytes % (A) 7 %; Neutrophils % (A) 79 %; RBC 4.07 m/uL (4.30-5.90); RDW 12.1 % (11.5-15.5); WBC 8.8 k/uL (3.8-10.6); WBC (Perox) 9.42
[2016-10-03] MEDS: metroNIDAZOLE-NS PMX 500 MG in SALINE 1 100ML.BAG IVPB SCH (09:24)
[2016-10-03] MEDS: SODIUM CHLORIDE 0.9% 1,000 ML IV SCH (09:26)
[2016-10-03] MEDS: PANTOPRAZOLE 40 MG/10 ML VIAL IV SCH (09:27)
--- NOTE | 2016-10-03 12:22 | P.PN ---
Progress Note - Text The patient is complaining of some abdominal pain in the right and left lower quadrants. He states his pain is worsened when he has a bowel movement. On exam as well as signs are stable. His abdomen is soft there is mild tenderness throughout the lower quadrants. There is no rebound or guarding. White count is 8.8. Resolving diverticulitis. I instructed the patient that if he has significant pain that he should become nothing by mouth. He'll be closely observed.
--- NOTE | 2016-10-05 12:27 | P.DS ---
Providers Date of admission: 09/29/16 21:23 Expected date of discharge: 10/03/16 Attending physician: Talha Ackerman Consults: 09/29/16 21:38 Consult Physician Stat Consulting Provider: Cesar Mancera Reason/Comments: Diverticulitis Do you want consulting provider notified?: Yes Primary care physician: Yanely Bryant [facility] Course: This is a 50-year-old male patient of Dr. Bryant with a previous medical history significant for asthma, GERD, hyperlipidemia, eczema, and diverticulosis patient was in his usual state of health about Wednesday when he came back from work and he developed to have an increased bowel pain associated with nausea and poor appetite, patient ended up going to the emergency department at [facility] and had a computed tomography scan of the abdomen and pelvis with contrast that showed diverticulitis with microperforation patient was started on IV antibiotic in the ER was given IV fluid and IV pain medicine he was sent home on ciprofloxacin and Flagyl and patient was supposed to follow-up with me as an outpatient and underwent week, patient continued to have significant abdominal pain associated with nausea and vomiting not able to keep anything down, patient was contacted yesterday to go to the ER and he was indeed on the way to the emergency department for evaluation and subsequently he was admitted to the hospital because of failed outpatient management. General surgery consultation was obtained from Dr. Mancera. 2/2: White count is 9.9 and hemoglobin 12.1. His abdominal pain is improved from yesterday. No nausea or vomiting. He is tolerating clear liquids. He is continued on levaquin and flagyl. 2/3: HGB 13, WBC 9. He is tolerating clear liquids and willing to try full liquids which have been ordered for dinner. 2/4: Patient states his pain is around a 2 or 3. He is tolerating his diet and taking at least 50%-75%. Patient will be discharged home today in stable condition. Discharge diagnoses: 1. Acute diverticulitis with microperforation. 2. History of asthma. 3. History of eczema. 4. GERD. 5. Hyperlipidemia. Discharge plan: Return home Impression and plan of care have been directed as dictated by the signing physician. Olivia Iniguez nurse practitioner acting as scribe for signing physician. Patient Condition at Discharge: Good Plan - Discharge Summary New Discharge Prescriptions: Ciprofloxacin HCl [Cipro] 500 mg PO Q12HR #20 tablet Hydrocodone/Acetaminophen [Shoals 5-325] 1 tab PO Q4HR PRN #60 tablet PRN Reason: Pain metroNIDAZOLE [Flagyl] 500 mg PO TID #30 tab Discharge Medication List Budesonide-Formot 160-4.5 Mcg [Symbicort 160-4.5 Mcg Inhaler] 2 puff INHALATION RT-DAILY 09/28/16 [History] Docusate [Colace] 300 mg PO BID PRN 09/29/16 [History] Ciprofloxacin HCl [Cipro] 500 mg PO Q12HR #20 tablet 10/03/16 [Rx] Hydrocodone/Acetaminophen [Shoals 5-325] 1 tab PO Q4HR PRN #60 tablet 10/03/16 [ Rx] metroNIDAZOLE [Flagyl] 500 mg PO TID #30 tab 10/03/16 [Rx] Follow up Appointment(s)/Referral(s): Yanely Bryant MD [Primary Care Provider] - 1 Week (Patient to call Dr. Bryant's office Wednesday to schedule follow up appointment. The office is closed at time of discharge.) Patient Instructions/Handouts: Ciprofloxacin (By mouth), Hydrocodone/ Acetaminophen (By mouth), Metronidazole (By mouth), Diverticulitis (DC), Acute Abdominal Pain (DC) Discharge Disposition: HOME SELF-CARE
== END 2016-10-03 14:25 | disposition home or self-care (01) | DRG 392 ==
LOC: EC 17:51 → 5MS5E 21:23
PROVIDERS: ADMIT Internal Medicine Geriatric Medicine; ATTEND Internal Medicine Geriatric Medicine
DX: K57.20 Diverticulitis of large intestine with perforation and abscess without bleeding (principal); E78.5 Hyperlipidemia, unspecified; J45.909 Unspecified asthma, uncomplicated; K21.9 Gastro-esophageal reflux disease without esophagitis; L30.9 Dermatitis, unspecified; K40.90 Unilateral inguinal hernia, without obstruction or gangrene, not specified as recurrent; K59.00 Constipation, unspecified; Z79.899 Other long term (current) drug therapy
CPT/HCPCS: 36415; 74000; 80053; 81001; 82150; 83690; 85025; 96361; 96365; 96366; 96375; 99285

== ENCOUNTER → 2016-10-15 | Outpatient (CLI) | payer MEDICAID ==
[2016-10-15 09:33] LABS: Basophils % (A) 0 %; CHCM 32.3; Eosinophils # (A) 0.2 k/uL (0-0.7); Eosinophils % (A) 2 %; HCT 42.3 % (39.0-53.0); HDW 2.76; HGB 13.7 gm/dL (13.0-17.5); Luc # (Auto) 0.18; Luc % (Auto) 2; Lymphocytes # (A) 1.5 k/uL (1.0-4.8); Lymphocytes % (A) 15 %; MCH 28.1 pg (25.0-35.0); MCHC 32.3 g/dL (31.0-37.0); MCV 87.1 fL (80.0-100.0); Monocytes # (A) 0.6 k/uL (0-1.0); Monocytes % (A) 6 %; Neutrophils # (A) 7.5 k/uL (1.3-7.7); Neutrophils % (A) 75 %; RBC 4.86 m/uL (4.30-5.90); RDW 12.8 % (11.5-15.5); WBC (Perox) 9.81
[2016-10-15 09:43] LABS: ALT 89 U/L (21-72); AST 35 U/L (17-59); Alkaline Phosphatase 51 U/L (38-126); Anion Gap 12 mmol/L; Blood Urea Nitrogen 8 mg/dL (9-20); Calcium 9.2 mg/dL (8.4-10.2); Carbon Dioxide 28 mmol/L (22-30); Chloride 103 mmol/L (98-107); Glucose 87 mg/dL (74-99); Non-African American GFR(MDRD) >60 (>60 ml/min/1.73 sqM); Potassium 4.2 mmol/L (3.5-5.1); Sodium 143 mmol/L (137-145); Total Bilirubin 0.6 mg/dL (0.2-1.3); Total Protein 7.3 g/dL (6.3-8.2)
--- NOTE | 2016-10-16 08:32 | CT ---
"EXAMINATION TYPE: CT abdomen pelvis w con DATE OF EXAM: 10/15/2016 5:21 PM COMPARISON: Prior exam August HISTORY: Follow-up for diverticulitis. CT DLP: 1063.00 mGycm Automated exposure control for dose reduction was used. TECHNIQUE: Helical acquisition of images was performed from the lung bases through the pelvis. CONTRAST: Performed with Oral Contrast and with IV Contrast, patient injected with 100 mL of Omnipaque 300. FINDINGS: LUNG BASES: Minimal dependent atelectatic change. No pleural or pericardial effusion. There may be sm all hiatal hernia, some distal esophageal thickening is suspected. LIVER/GB: No significant abnormality is appreciated. PANCREAS: No significant abnormality is seen. SPLEEN: No significant abnormality is seen. ADRENALS: No significant abnormality is seen. KIDNEYS: No significant abnormality is seen. RETROPERITONEAL ADENOPATHY: None visualized REPRODUCTIVE ORGANS: No significant abnormality is seen URINARY BLADDER: No significant abnormality is seen. PELVIC ADENOPATHY: None visualized. OSSEOUS STRUCTURES: No significant abnormality is seen. BOWEL: Abnormal thickening of the rectosigmoid junction, extensive diverticular change again noted w ithin the pelvis. There is a fluid collection present at the site of the previously identified inflam matory change measuring approximately 3.5 x 4.5 x 2.9 cm with thickened wall and central low attenuat ion. There is mass effect on the rectosigmoid junction. OTHER: Aorta is not dilated. INGUINAL HERNIA AGAIN NOTED. IMPRESSION: PELVIC ABSCESS IS PRESENT, FINDINGS CONSISTENT WITH DIVERTICULITIS. A Yellow message has been communicated to Yanely Bryant MD via the [employer] | Critical Result sy stem on 10/16/2016 8:29 AM, Message ID [id number]."
== END | disposition home or self-care (01) ==
LOC: RADCTMAIN 09:06
PROVIDERS: ATTEND Internal Medicine
DX: K65.1 Peritoneal abscess (principal)
CPT/HCPCS: 80053; 85025; 74177; Q9967

== ENCOUNTER 2016-10-19 11:22 | Emergency (ER) | payer MEDICAID ==
[2016-10-19 13:18] LABS: Appearance,Urine Clear (Clear); Bilirubin,Urine Negative (Negative); Glucose,Urine (UA) Negative (Negative); Ketones,Urine Negative (Negative); Leukocyte Esterase,Urine Negative (Negative); Nitrite,Urine Negative (Negative); Protein,Urine Negative (Negative); Specific Gravity,Urine 1.004 (1.001-1.035); UA Billing (MACRO vs. MICRO) CHEM; Urobilinogen,Urine <2.0 mg/dL (<2.0)
[2016-10-19 13:22] LABS: Basophils % (A) 1 %; CH 28.5; Eosinophils # (A) 0.2 k/uL (0-0.7); Eosinophils % (A) 3 %; HCT 41.9 % (39.0-53.0); HDW 2.72; HGB 13.6 gm/dL (13.0-17.5); Luc # (Auto) 0.14; Luc % (Auto) 2; Lymphocytes # (A) 1.3 k/uL (1.0-4.8); Lymphocytes % (A) 21 %; MCH 27.3 pg (25.0-35.0); MCHC 32.4 g/dL (31.0-37.0); MCV 84.1 fL (80.0-100.0); Mean Platelet Volume 5.8; Monocytes # (A) 0.4 k/uL (0-1.0); Monocytes % (A) 7 %; Neutrophils # (A) 4.3 k/uL (1.3-7.7); Neutrophils % (A) 67 %; RBC 4.98 m/uL (4.30-5.90); RDW 12.7 % (11.5-15.5); WBC 6.4 k/uL (3.8-10.6); WBC (Perox) 6.23
[2016-10-19 13:29] LABS: ALT 88 U/L (21-72); AST 43 U/L (17-59); Alkaline Phosphatase 60 U/L (38-126); Amylase 100 U/L (30-110); Anion Gap 11 mmol/L; Blood Urea Nitrogen 14 mg/dL (9-20); Calcium 9.7 mg/dL (8.4-10.2); Carbon Dioxide 29 mmol/L (22-30); Chloride 100 mmol/L (98-107); Glucose 87 mg/dL (74-99); Non-African American GFR(MDRD) >60 (>60 ml/min/1.73 sqM); Potassium 5.3 mmol/L (3.5-5.1); Sodium 140 mmol/L (137-145); Total Bilirubin 0.6 mg/dL (0.2-1.3); Total Protein 7.5 g/dL (6.3-8.2)
--- NOTE | 2016-10-19 13:54 | ED ---
Recheck HPI - General Chief Complaint: Recheck/Abnormal Lab/Rx Stated Complaint: Abdominal Abcess Sent by Annette Time Seen by Provider: 10/19/16 12:15 Source: patient Mode of arrival: ambulatory Limitations: no limitations - History of Present Illness Initial Comments: This patient is a 51-year-old man presenting after he received a call about an abnormal result from a computed tomography scan that he had. Patient states that he had been having some abdominal pain and cramping associated with some diarrhea. He had seen his physician and was sent to have a computed tomography scan. He received a call informing him that there was an abnormal result and he presents here. Patient does state that his symptoms have improved a bit, there is just a little bit of lower abdominal discomfort. Patient denies fever or chills. He is not having any nausea or vomiting. He states that the bowel movements have improved. -: days(s) Returns Today for: Called Because of Abnormal Lab/Test Symptoms Since Prior Visit: no new symptoms, improved Associated Symptoms: abdominal pain - Related Data Home Medications Medication Instructions Recorded Confirmed Budesonide-Formot 160-4.5 Mcg 2 puff INHALATION RT-DAILY 09/28/16 12/23/16 [Symbicort 160-4.5 Mcg Inhaler] Acetaminophen [Tylenol] 1,000 mg PO Q4-6H PRN 10/19/16 12/23/16 Aspirin 81 mg PO DAILY PRN 12/22/16 12/23/16 Glucosamine/Chondro Hernandez A [Cosamin 1 each PO DAILY 12/22/16 12/23/16 Ds Tablet] Ibuprofen [Motrin] 200 - 400 mg PO Q6HR PRN 12/22/16 12/23/16 Multivitamin [Men's Multi-Vitamin] 1 each PO DAILY 12/22/16 12/23/16 Mv-Min/Vit C/Glut/Edith AC/Hc124 1 each PO DAILY 12/22/16 12/23/16 [Airborne Tablet Chewable] Omeprazole [PriLOSEC] 20 mg PO AC-BRKFST 12/22/16 12/23/16 Allergies Allergy/AdvReac Type Severity Reaction Status Date / Time No Known Allergies Allergy Verified 12/22/16 08:53 Review of Systems ROS Statement: Those systems with pertinent positive or pertinent negative responses have been documented in the HPI. ROS Other: All systems not noted in ROS Statement are negative. Constitutional: Denies: fever, chills Respiratory: Denies: cough, dyspnea Cardiovascular: Denies: chest pain, palpitations, syncope Gastrointestinal: Reports: as per HPI, abdominal pain. Denies: nausea, vomiting , diarrhea, constipation Genitourinary: Denies: dysuria, hematuria Musculoskeletal: Denies: back pain Skin: Denies: rash Neurological: Denies: headache, weakness, numbness Past Medical History Past Medical History: Asthma, GERD/Reflux, Hyperlipidemia, Skin Disorder Additional Past Medical History / Comment(s): hernia, diverticulitis History of Any Multi-Drug Resistant Organisms: None Reported Past Surgical History: Hernia Repair Additional Past Surgical History / Comment(s): Double hernia repair as well as sinus surgery in 2000 Past Anesthesia/Blood Transfusion Reactions: No Reported Reaction Past Psychological History: No Psychological Hx Reported Smoking Status: Never smoker Past Alcohol Use History: Occasional Past Drug Use History: None Reported - Past Family History Father Family Medical History: Cancer (Father at age of 62 from multiple myeloma as well as gastric cancer) Mother Family Medical History: No Reported History (Mother is alive she 75-year-old.) Brother(s) Family Medical History: No Reported History (Patient has 3 brothers no major medical problems.) Sister(s) Family Medical History: No Reported History (Patient has 2 sisters no major medical problems.) General Exam Limitations: no limitations General appearance: alert, in no apparent distress Head exam: Present: atraumatic, normocephalic Eye exam: Present: normal appearance Neck exam: Present: normal inspection, full ROM Respiratory exam: Present: normal lung sounds bilaterally. Absent: respiratory distress, wheezes, rales, rhonchi, stridor Cardiovascular Exam: Present: regular rate, normal rhythm, normal heart sounds GI/Abdominal exam: Present: soft, normal bowel sounds. Absent: distended, tenderness, guarding, rebound, rigid, mass, pulsatile mass, hernia Extremities exam: Present: normal inspection, normal capillary refill. Absent: pedal edema, calf tenderness Back exam: Present: normal inspection. Absent: CVA tenderness (R), CVA tenderness (L) Skin exam: Present: warm, dry, intact, normal color. Absent: rash Course Vital Signs 10/19/16 10/19/16 11:24 14:11 Temperature 98.0 F 97.0 F L Pulse Rate 60 95 Respiratory 20 18 Rate Blood Pressure 131/74 114/74 O2 Sat by Pulse 98 97 Oximetry Medical Decision Making - Medical Decision Making This patient is a 50-year-old man who presents after being called regarding CT finding of pelvic abscess. The patient sounds like he had an episode of diverticulitis with the onset approximately 3 weeks ago. He was seen in the emergency department had a course of antibiotics, had surgical follow-up, and then had a CAT scan performed on 10/16/16. He did receive a call today regarding the finding of an abscess located along the sigmoid colon. The patient states that he has been getting better and better since the flareup occurred. Today he is not having any abdominal pain. He is not having fevers or chills. He states that he had been having difficulty with bowel movements but about 48 hours ago things started normalizing. He has had normal bowel movements for the past 2 days, no blood, no constipation or diarrhea. We did perform laboratories and I reviewed the computed tomography scan. I discussed the results with Dr. Boles, who is covering for Dr. mancera. The patient at this point appears stable to see Dr. Mancera in clinic. I discussed this with the patient and he states that given the choice between being admitted in the hospital to be seen by a new surgeon or interventional list, and following up in clinic on Wednesday with Dr. Mancera he would prefer to see Dr. Mancera. I did discuss signs and symptoms requiring his immediate reevaluation for admission. All questions answered. - Lab Data Result diagrams: 10/19/16 13:00 10/19/16 13:00 Lab Results 10/19/16 10/19/16 10/19/16 Range/Units 13:00 13:00 13:00 WBC 6.4 (3.8-10.6) k/uL RBC 4.98 (4.30-5.90) m/uL Hgb 13.6 (13.0-17.5) gm/dL Hct 41.9 (39.0-53.0) % MCV 84.1 (80.0-100.0) fL MCH 27.3 (25.0-35.0) pg MCHC 32.4 (31.0-37.0) g/dL RDW 12.7 (11.5-15.5) % Plt Count 365 (150-450) k/uL Neutrophils % 67 % Lymphocytes % 21 % Monocytes % 7 % Eosinophils % 3 % Basophils % 1 % Neutrophils # 4.3 (1.3-7.7) k/uL Lymphocytes # 1.3 (1.0-4.8) k/uL Monocytes # 0.4 (0-1.0) k/uL Eosinophils # 0.2 (0-0.7) k/uL Basophils # 0.0 (0-0.2) k/uL Sodium 140 (137-145) mmol/L Potassium 5.3 H (3.5-5.1) mmol/L Chloride 100 (98-107) mmol/L Carbon Dioxide 29 (22-30) mmol/L Anion Gap 11 mmol/L BUN 14 (9-20) mg/dL Creatinine 0.85 (0.66-1.25) mg/dL Est GFR (MDRD) Af Amer >60 (>60 ml/min/1.73 sqM) Est GFR (MDRD) Non-Af >60 (>60 ml/min/1.73 sqM) Glucose 87 (74-99) mg/dL Calcium 9.7 (8.4-10.2) mg/dL Total Bilirubin 0.6 (0.2-1.3) mg/dL AST 43 (17-59) U/L ALT 88 H (21-72) U/L Alkaline Phosphatase 60 (38-126) U/L Total Protein 7.5 (6.3-8.2) g/dL Albumin 4.3 (3.5-5.0) g/dL Amylase 100 (30-110) U/L Lipase 168 (23-300) U/L Urine Color Light Yellow Urine Appearance Clear (Clear) Urine pH 7.0 (5.0-8.0) Ur Specific [place] 1.004 (1.001-1.035) Urine Protein Negative (Negative) Urine Glucose (UA) Negative (Negative) Urine Ketones Negative (Negative) Urine Blood Negative (Negative) Urine Nitrate Negative (Negative) Urine Bilirubin Negative (Negative) Urine Urobilinogen <2.0 (<2.0) mg/dL Ur Leukocyte Esterase Negative (Negative) Disposition Clinical Impression: Diverticulitis, Pelvic abscess Disposition: HOME SELF-CARE Condition: Fair Instructions: Abscess (ED), Diverticulosis (ED) Referrals: Yanely Bryant MD [Primary Care Provider] - 1-2 days Cesar Mancera MD [Medical Doctor] - 1-2 days
[2016-10-19 14:13] VITALS: BP 114/74; PULSE 95; RESP 18; TEMP 97
== END 2016-10-19 14:13 | disposition home or self-care (01) ==
LOC: EC 11:22
DX: K65.1 Peritoneal abscess (principal); K57.92 Diverticulitis of intestine, part unspecified, without perforation or abscess without bleeding; J45.909 Unspecified asthma, uncomplicated; K21.9 Gastro-esophageal reflux disease without esophagitis; Z79.51 Long term (current) use of inhaled steroids; Z79.899 Other long term (current) drug therapy; Z87.19 Personal history of other diseases of the digestive system
CPT/HCPCS: 36415; 80053; 81003; 82150; 83690; 85025; 99283

== ENCOUNTER 2016-10-23 08:47 | Day surgery (SDC) | payer MEDICAID ==
[2016-10-23 09:08] VITALS: RESP 18; TEMP 97.7
[2016-10-23] MEDS ORDERED: ALPRAZolam 0.5 MG TAB PO ONE (09:09)
[2016-10-23] MEDS ORDERED: HYDROmorphone 1 MG/ML 1 ML SYRINGE IVP PRN (09:09)
[2016-10-23 09:35] LABS: INR 1.1 (<1.1); Prothrombin Time 11.4 sec (9.0-12.0)
[2016-10-23 10:27] VITALS: BP 113/76; PULSE 59
[2016-10-23] MEDS ORDERED: HYDROmorphone 1 MG/ML 1 ML SYRINGE IVP STA (10:36)
--- NOTE | 2016-10-23 10:59 | CT ---
EXAMINATION TYPE: CT discontinued procedure interventional radiology consultation. DATE OF EXAM: 10/23/2016 10:52 AM COMPARISON: Prior CT 15 October 2016 HISTORY: CT Guided abscess drainage. Procedure discontinued per Dr. Smith. CT DLP: 208 mGycm Automated exposure control for dose reduction was used. By history patient states improvement in prior symptoms. Physical exam shows patient in no apparent d istress. No evident superficial lesion. FINDINGS: Comparison a prior CT scan the fluid collection seen deep within the pelvis has nearly entirely resol aden. Minimal fluid measuring only approximately 15 mm in greatest dimension is suspected. There is in flammatory change. IMPRESSION: IMPROVEMENT IN PATIENT'S PELVIC ABSCESS. NO CT DRAINAGE PERFORMED AT THIS TIME. FOLLOW-UP INDICATE D.
== END 2016-10-23 11:04 | disposition home or self-care (01) ==
LOC: RADPROMAIN 08:47
PROVIDERS: ATTEND Surgery
DX: K65.1 Peritoneal abscess (principal)
CPT/HCPCS: 76380; 85049; 85610

== ENCOUNTER 2016-12-23 06:58 | Day surgery (SDC) | payer MEDICAID ==
[2016-12-22 09:04] VITALS: BMI 39.5
[~2016-12-23 06:58] MED LIST: LACTATED RINGERS 1,000 ML IV SCH
[2016-12-23 07:23] VITALS: TEMP 97.8
[2016-12-23] MEDS ORDERED: PROPOFOL 10 MG/ML 20 ML VIAL IV ONE (07:40)
--- NOTE | 2016-12-23 07:46 | P.GSHP ---
History of Present Illness H&P Date: 12/23/16 Chief Complaint: Change in bowel habits Patient here today for colonoscopy. He has not had one for the last 6 years. He was recently hospitalized with diverticulitis and microperforation. He is having intermittent constipation. Denies rectal bleeding. Pain is now resolved. Past Medical History Past Medical History: Asthma, GERD/Reflux, Hyperlipidemia, Skin Disorder Additional Past Medical History / Comment(s): hernia-left inguinal, diverticulitis-PELVIC ABCESS. History of Any Multi-Drug Resistant Organisms: None Reported Past Surgical History: Hernia Repair Additional Past Surgical History / Comment(s): Double hernia at , sinus surgery in 2000. Past Anesthesia/Blood Transfusion Reactions: No Reported Reaction Additional Past Anesthesia/Blood Transfusion Reaction / Comment(s): took a long time to wake up with nasal surgery Past Psychological History: No Psychological Hx Reported Smoking Status: Never smoker Past Alcohol Use History: Occasional Past Drug Use History: None Reported - Past Family History Father Family Medical History: Cancer Mother Family Medical History: No Reported History Brother(s) Family Medical History: No Reported History Sister(s) Family Medical History: No Reported History Medications and Allergies Home Medications Medication Instructions Recorded Confirmed Type Budesonide-Formot 160-4.5 Mcg 2 puff INHALATION RT-DAILY 09/28/16 12/23/16 History [Symbicort 160-4.5 Mcg Inhaler] Acetaminophen [Tylenol] 1,000 mg PO Q4-6H PRN 10/19/16 12/23/16 History Aspirin 81 mg PO DAILY PRN 12/22/16 12/23/16 History Glucosamine/Chondro Hernandez A [Cosamin 1 each PO DAILY 12/22/16 12/23/16 History Ds Tablet] Ibuprofen [Motrin] 200 - 400 mg PO Q6HR PRN 12/22/16 12/23/16 History Multivitamin [Men's Multi-Vitamin] 1 each PO DAILY 12/22/16 12/23/16 History Mv-Min/Vit C/Glut/Edith AC/Hc124 1 each PO DAILY 12/22/16 12/23/16 History [Airborne Tablet Chewable] Omeprazole [PriLOSEC] 20 mg PO AC-BRKFST 12/22/16 12/23/16 History Allergies Allergy/AdvReac Type Severity Reaction Status Date / Time No Known Allergies Allergy Verified 12/22/16 08:53 Surgical - Exam Vital Signs Temp Pulse Resp BP Pulse Ox 97.8 F 60 20 117/76 96 12/23/16 07:21 12/23/16 07:21 12/23/16 07:21 12/23/16 07:21 12/23/16 07:21 Physical exam: General: Well-developed, well-nourished HEENT: Normocephalic, sclerae nonicteric Abdomen: Nontender, nondistended, reducible left inguinal hernia Extremities: No edema Neuro: Alert and oriented Assessment and Plan (1) Change in bowel habits Narrative/Plan: Will proceed with colonoscopy at this time. Status: Acute
[2016-12-23 08:19] VITALS: RESP 16
[2016-12-23 08:21] VITALS: BP 130/89; PULSE 66
--- NOTE | 2016-12-23 14:32 | FL ---
EXAMINATION TYPE: FL barium enema DATE OF EXAM: 12/23/2016 2:04 PM COMPARISON: NONE HISTORY: INCOMPLETE COLONOSCOPY, DIVERTICULITIS TECHNIQUE: Barium and air were instilled into the colon from the rectum to the cecum. There is reflux into the appendix and terminal ileum. FINDINGS: Slot Floor Attendant view of the abdomen shows overall non-obstructive bowel gas pattern. No evidence of any mass or polyp, obstructing or constricting lesion throughout the colon. There is e vidence of sigmoid diverticulosis with circular muscle hypertrophy seen. No evidence for active diver ticulitis at this time. No evidence for inflammatory bowel disease. Appendix was filled and appeared normal. The terminal ileum was refluxed and appears within normal l imits. IMPRESSION: 1. Sigmoid diverticulosis with circular muscle hypertrophy no evidence for active diverticulitis at t his time. Examination is otherwise unremarkable.
--- NOTE | 2017-01-15 14:00 | PCN ---
DATE OF PROCEDURE: 12/23/2016 PREOPERATIVE DIAGNOSIS: Change in bowel habits. POSTOPERATIVE DIAGNOSIS: Diverticulitis. PROCEDURE: Colonoscopy. ANESTHESIA: Sedation. COMPLICATIONS: None. OPERATIVE PROCEDURE: Patient was brought and placed on the operating room table in the left decubitus position. The patient was sedated per Anesthesia at that time The Olympus colonoscope was inserted in the anus and passed under direct visualization to relation of the midsigmoid. The patient had evidence of some erythema and edema of the mucosa. There was a lack of distensibility of the colon. There were multiple diverticula in this area. This was consistent with subacute diverticulitis. I was unable to advance the scope beyond that point. The scope was withdrawn. No abnormalities were identified in addition to that. The digital rectal examination was normal. PLAN: Will check postoperative barium enema but the patient may benefit from sigmoid colectomy at this point
== END 2016-12-23 09:00 | disposition home or self-care (01) ==
LOC: ORWHC2ENDO 06:58
PROVIDERS: ATTEND Surgery
DX: K57.30 Diverticulosis of large intestine without perforation or abscess without bleeding (principal); K59.00 Constipation, unspecified; R19.4 Change in bowel habit; E78.5 Hyperlipidemia, unspecified; J45.909 Unspecified asthma, uncomplicated; K21.9 Gastro-esophageal reflux disease without esophagitis; Z79.82 Long term (current) use of aspirin; Z79.899 Other long term (current) drug therapy
CPT/HCPCS: 74270; 45378; J2704

== ENCOUNTER → 2017-01-26 | Outpatient (CLI) | payer MEDICAID ==
[2017-01-26 08:37] LABS: EKG EKG PERFORMED
[2017-01-26 09:22] LABS: Anion Gap 9 mmol/L; Carbon Dioxide 29 mmol/L (22-30); Chloride 102 mmol/L (98-107); Potassium 4.4 mmol/L (3.5-5.1); Sodium 140 mmol/L (137-145)
[2017-01-26 09:39] LABS: CH 29.3; CHCM 34.3; HCT 43.5 % (39.0-53.0); HDW 2.44; HGB 14.7 gm/dL (13.0-17.5); MCH 28.9 pg (25.0-35.0); MCHC 33.7 g/dL (31.0-37.0); MCV 85.7 fL (80.0-100.0); Mean Platelet Volume 6.3; RBC 5.08 m/uL (4.30-5.90); RDW 13.3 % (11.5-15.5); WBC 8.4 k/uL (3.8-10.6)
== END | disposition home or self-care (01) ==
LOC: LABPAT 08:14
PROVIDERS: ATTEND Surgery
DX: Z01.812 Encounter for preprocedural laboratory examination (principal); K57.92 Diverticulitis of intestine, part unspecified, without perforation or abscess without bleeding; Z01.810 Encounter for preprocedural cardiovascular examination
CPT/HCPCS: 80051; 85027; 93005

== ENCOUNTER 2017-01-29 06:41 | Inpatient (IN) | payer MEDICAID ==
--- NOTE | 2017-01-15 21:18 | P.GSHP ---
History of Present Illness H&P Date: 01/15/17 Chief Complaint: Chronic recurrent diverticulitis Patient is well-known to our service. He has had at least 2 recent episodes of diverticulitis. He first had diverticulitis 5-6 years ago. A microperforation was identified when he was hospitalized recently. He underwent a recent colonoscopy and at that time the patient's colonic lumen was narrowed and non- distensible. There was some residual erythema. A barium enema also suggested muscular hypertrophy. The patient complains of frequent episodes of left lower quadrant pain. Some narrow stools. Constipation symptoms are persisting as well. No nausea or vomiting currently. No rectal bleeding or melena currently. He does also have asymptomatic left inguinal hernia at present. Past Medical History Past Medical History: Asthma, GERD/Reflux, Hyperlipidemia, Skin Disorder Additional Past Medical History / Comment(s): hernia-left inguinal, diverticulitis-PELVIC ABCESS. History of Any Multi-Drug Resistant Organisms: None Reported Past Surgical History: Hernia Repair Additional Past Surgical History / Comment(s): Double hernia at , sinus surgery in 2000. Past Anesthesia/Blood Transfusion Reactions: No Reported Reaction Additional Past Anesthesia/Blood Transfusion Reaction / Comment(s): took a long time to wake up with nasal surgery Past Psychological History: No Psychological Hx Reported Smoking Status: Never smoker Past Alcohol Use History: Occasional Past Drug Use History: None Reported - Past Family History Father Family Medical History: Cancer (Father at age of 62 from multiple myeloma as well as gastric cancer) Mother Family Medical History: No Reported History (Mother is alive she 75-year-old.) Brother(s) Family Medical History: No Reported History (Patient has 3 brothers no major medical problems.) Sister(s) Family Medical History: No Reported History (Patient has 2 sisters no major medical problems.) Medications and Allergies Home Medications Medication Instructions Recorded Confirmed Type Budesonide-Formot 160-4.5 Mcg 2 puff INHALATION RT-DAILY 09/28/16 12/23/16 History [Symbicort 160-4.5 Mcg Inhaler] Acetaminophen [Tylenol] 1,000 mg PO Q4-6H PRN 10/19/16 12/23/16 History Aspirin 81 mg PO DAILY PRN 12/22/16 12/23/16 History Glucosamine/Chondro Hernandez A [Cosamin 1 each PO DAILY 12/22/16 12/23/16 History Ds Tablet] Ibuprofen [Motrin] 200 - 400 mg PO Q6HR PRN 12/22/16 12/23/16 History Multivitamin [Men's Multi-Vitamin] 1 each PO DAILY 12/22/16 12/23/16 History Mv-Min/Vit C/Glut/Edith AC/Hc124 1 each PO DAILY 12/22/16 12/23/16 History [Airborne Tablet Chewable] Omeprazole [PriLOSEC] 20 mg PO AC-BRKFST 12/22/16 12/23/16 History Allergies Allergy/AdvReac Type Severity Reaction Status Date / Time No Known Allergies Allergy Verified 12/22/16 08:53 Surgical - Exam GENERAL: Well-developed, well-nourished HEENT: Normocephalic, sclera nonicteric, EOM intact, no swelling CHEST: No deformities ABDOMEN: Soft, Mild left lower quadrant tenderness, nondistended EXTREMITIES: No deformities, motor grossly intact NEURO: Awake and alert Assessment and Plan (1) Diverticulitis Narrative/Plan: We'll proceed with laparoscopic sigmoid colectomy, possible Open sigmoid colectomy on 01/29. The risks of bleeding, infection, anastomotic dehiscence, hernia, conversion, ureteral injury were discussed. He understands and wishes to proceed. Status: Acute
[2017-01-20 15:36] VITALS: BMI 22.6
[~2017-01-29 06:41] MED LIST changes: +ALVIMOPAN 12 MG CAPSULE PO ONE; +DEXAMETHASONE SOD PHOSPHATE 10 MG/ML 1 ML VIAL IV ONE; +HEPARIN SODIUM,PORCINE 5,000 UNIT/ML 1 ML VIAL SQ ONE; -LACTATED RINGERS 1,000 ML IV SCH; +ONDANSETRON 4 MG/2 ML VIAL IVP ONE; +ceFAZolin 2 GM in SODIUM CHLORIDE 0.9% 100 ML IVPB ONE; +metroNIDAZOLE-NS PMX 500 MG in SALINE 1 100ML.BAG IVPB ONE
[2017-01-29] MEDS: LACTATED RINGERS 1,000 ML IV SCH ×2 (06:58→23:45)
[2017-01-29] MEDS ORDERED: LIDOCAINE 1% 20 ML VIAL (10MG/ML) FOR IV START INTRADERMA ONE (07:03)
[2017-01-29 07:22] LABS: Basophils % (A) 1 %; CH 29.4; CHCM 35.3; Eosinophils # (A) 0.6 k/uL (0-0.7); Eosinophils % (A) 7 %; HCT 39.1 % (39.0-53.0); HDW 2.46; HGB 13.6 gm/dL (13.0-17.5); Luc # (Auto) 0.18; Luc % (Auto) 2; Lymphocytes # (A) 2.2 k/uL (1.0-4.8); Lymphocytes % (A) 27 %; MCH 29.1 pg (25.0-35.0); MCHC 34.9 g/dL (31.0-37.0); MCV 83.5 fL (80.0-100.0); Mean Platelet Volume 6.2; Monocytes # (A) 0.6 k/uL (0-1.0); Monocytes % (A) 8 %; Neutrophils # (A) 4.5 k/uL (1.3-7.7); Neutrophils % (A) 56 %; RBC 4.69 m/uL (4.30-5.90); RDW 13.1 % (11.5-15.5); WBC 8.1 k/uL (3.8-10.6); WBC (Perox) 8.18
[2017-01-29 07:34] LABS: Potassium 4.1 mmol/L (3.5-5.1)
[2017-01-29] MEDS ORDERED: fentaNYL (PF) 50 MCG/ML 2 ML AMP ONE (07:58)
[2017-01-29] MEDS ORDERED: SUCCINYLCHOLINE CHLORIDE 100 MG/5 ML SYR IV ONE (07:58)
[2017-01-29] MEDS ORDERED: PROPOFOL 10 MG/ML 20 ML VIAL IV ONE (07:58)
[2017-01-29] MEDS ORDERED: MIDAZOLAM 2 MG/2 ML VIAL ONE (07:58)
[2017-01-29] MEDS ORDERED: ROCURONIUM BROMIDE 10 MG/ML 10 ML VIAL IV ONE ×2 (07:58)
[2017-01-29] MEDS ORDERED: GLYCOPYRROLATE 0.2 MG/ML 2 ML VIAL ONE (07:58)
[2017-01-29] MEDS ORDERED: NEOSTIGMINE 1 MG/ML 10 ML VIAL ONE (07:58)
[2017-01-29] MEDS ORDERED: FUROSEMIDE 10 MG/ML 2 ML VIAL ONE (07:58)
[2017-01-29] MEDS ORDERED: LIDOCAINE 1% INJ 10MG/ML (20 ML MDV) ONE (07:58)
[2017-01-29] MEDS ORDERED: PHENYLEPHRINE-0.9% NACL SYG 1 MG/10 ML SYRINGE ONE (07:58)
[2017-01-29] MEDS ORDERED: BUPIVACAIN-EPI 0.25%-1:200,000 30 ML VIAL SQ ONE (08:48)
[2017-01-29] MEDS ORDERED: LACTATED RINGERS 1,000 ML IV ONE ×2 (11:42→12:14)
--- NOTE | 2017-01-29 12:59 | P.OP ---
Date of Procedure: 01/29/17 Preoperative Diagnosis: Postoperative Diagnosis: Procedure(s) Performed: PREOPERATIVE DIAGNOSIS: Chronic diverticulitis POSTOPERATIVE DIAGNOSIS: Same PROCEDURE: Laparoscopic sigmoid colectomy SURGEON: Fiordaliza EBL: 50ML ANESTHESIA: General COMPLICATIONS: None OPERATIVE PROCEDURE: The patient was placed in the operating table in the supine position. He was placed under general anesthesia that time. Patient was then placed in lithotomy. A Stoner catheter was placed. The patient was placed on the huggy vac. The arms were tucked. The abdomen was prepped and draped in the usual sterile fashion. A vertical supraumbilical incision was made using the scalpel. The fascia was retracted anteriorly with Austin forceps. The Veress needle was advanced into the peritoneal cavity and pneumoperitoneum was achieved up to 15 monitor mercury. A 5 mm trocar was then placed. An additional 5 mm trocar was placed in the right upper quadrant as well as a 5 mm trocar in the left upper quadrant. A 12 mm trocar was placed in the right lateral lower quadrant. Using the 30 5 mm scope the pelvis was inspected. The patient had adhesions between the omentum and the left indirect hernia sac. This was lysed using the LigaSure device. The patient was placed in fairly steep Trendelenburg position. The small bowel was swept superiorly. The sigmoid colon was carefully inspected. There were chronic inflammatory changes present with some flimsy adhesions involving the proximal and mid sigmoid colon to the pelvic sidewall and to the anterior pelvis. These were lysed primarily using blunt dissection. As we approached the deeper pelvis just past the sacral promontory near the junction with the rectum there was fairly impressive chronic inflammatory change present that required more tedious dissection. The distal descending colon and sigmoid colon were mobilized from the left pelvic sidewall using a combination of blunt dissection and the LigaSure device. The course of the left ureter was identified and preserved throughout. The course of the right ureter was also identified and preserved. The colon was retracted cephalad and anteriorly. The course of the hypogastric artery was identified. A plane deep to the hypogastric artery was entered and careful dissection took place distally. As we approached the proximal rectum at the cul-de-sac we began our dissection towards the rectal wall. Circumferentially this was cleared of adipose tissue and mesenteric tissue. The bowel was then divided at that location using 2 separate firings of a green load 45 mm Endo YAMILEX. The bowel was unable to be retracted superiorly. The superior hemorrhoidal and sigmoid branches were divided using a combination of 12 mm clips and the white load 45 Endo YAMILEX. We had excellent mobilization of the bowel at this point. A small Pfannenstiel incision was made in the pelvis just to the left of midline. The saphenous fat was divided using a trocar. The anterior rectus fascia was divided horizontally and the rectus musculature was . The small Jose retractor was utilized. The bowel was brought out through this site. A site was chosen proximal to the inflamed segment for anastomosis. There was excellent blood supply to this location. The remainder of the mesentery was divided using electrocautery and the bowel was divided using a blue load 45 Endo YAMILEX. The fat around the proximal colon was then freed and the pursestring adapter was applied and fired. The sizers were utilized. The 25 EEA was chosen. The obturator was placed within the bowel and the pursestring suture was tied down. Again any additional fatty tissue was dissected away from the anastomotic site. The sizer and subsequently the stapler was inserted into the anus and brought up to the staple line. The spike from the EEA stapler was brought out exterior to our staple line. This was then connected to the anvil subsequent tightened and fired. 2 excellent rings were noted. The bowel was clamped proximal to our anastomotic site. The pelvis was irrigated with saline. The bowel was then filled with air using a rigid sigmoidoscope with no evidence of leak. Additional irrigation took place with no evidence of any bleeding. The Pfannenstiel incision had been closed after we reduced our proximal colon back into the abdominal cavity using a running #1 PDS suture. After the pneumoperitoneum was evacuated all incision sites were closed using 4-0 Monocryl sutures and Dermabond. At the end of the procedure the sponge needle and instrument counts were correct. DISPOSITION: Stable to recovery room Implants: Indications for Procedure: Operative Findings: Description of Procedure:
[2017-01-29] MEDS: HYDROmorphone 1 MG/ML 1 ML SYRINGE IVP PRN ×7 (13:04→23:57)
[2017-01-29] MEDS: D5-0.45% NACL WITH KCL 20MEQ/L 1,000 ML IV SCH ×2 (14:24→20:04)
[2017-01-29] MEDS: ONDANSETRON 4 MG/2 ML VIAL IVP PRN ×2 (14:24→21:30)
[2017-01-29] MEDS ORDERED: IPRATROPIUM-ALBUTEROL 3 ML NEB INHALATION PRN (14:35)
[2017-01-29] MEDS: HEPARIN SODIUM,PORCINE 5,000 UNIT/ML 1 ML VIAL SQ SCH ×2 (16:12→23:50)
[2017-01-29] MEDS: METOCLOPRAMIDE 5 MG/ML 2 ML VIAL IVP PRN ×2 (17:57→23:58)
[2017-01-29] MEDS: FAMOTIDINE 20 MG/2 ML VIAL IV SCH (20:04)
[2017-01-30] MEDS: D5-0.45% NACL WITH KCL 20MEQ/L 1,000 ML IV SCH ×3 (05:04→23:33)
[2017-01-30] MEDS: HYDROmorphone 1 MG/ML 1 ML SYRINGE IVP PRN ×6 (05:12→23:37)
[2017-01-30] MEDS: ONDANSETRON 4 MG/2 ML VIAL IVP PRN ×2 (06:37→19:41)
[2017-01-30 07:29] LABS: Basophils % (A) 0 %; CH 29.5; CHCM 35.6; Eosinophils % (A) 0 %; HCT 36.4 % (39.0-53.0); HDW 2.56; HGB 12.7 gm/dL (13.0-17.5); Luc # (Auto) 0.18; Luc % (Auto) 2; Lymphocytes # (A) 1.2 k/uL (1.0-4.8); Lymphocytes % (A) 10 %; MCHC 34.9 g/dL (31.0-37.0); MCV 83.1 fL (80.0-100.0); Mean Platelet Volume 6.2; Monocytes % (A) 8 %; Neutrophils # (A) 9.7 k/uL (1.3-7.7); Neutrophils % (A) 80 %; RBC 4.38 m/uL (4.30-5.90); RDW 12.8 % (11.5-15.5); WBC 12.1 k/uL (3.8-10.6); WBC (Perox) 12.56
[2017-01-30 07:41] LABS: Anion Gap 6 mmol/L; Blood Urea Nitrogen 9 mg/dL (9-20); Calcium 8.3 mg/dL (8.4-10.2); Carbon Dioxide 26 mmol/L (22-30); Chloride 105 mmol/L (98-107); Glucose 139 mg/dL (74-99); Non-African American GFR(MDRD) >60 (>60 ml/min/1.73 sqM); Potassium 4.5 mmol/L (3.5-5.1); Sodium 137 mmol/L (137-145)
[2017-01-30] MEDS: SYMBICORT 160-4.5 MCG INHALER INHALATION SCH (07:52)
[2017-01-30] MEDS: HEPARIN SODIUM,PORCINE 5,000 UNIT/ML 1 ML VIAL SQ SCH ×3 (08:16→23:32)
[2017-01-30] MEDS: FAMOTIDINE 20 MG/2 ML VIAL IV SCH ×2 (08:17→20:33)
[2017-01-30] MEDS: ALVIMOPAN 12 MG CAPSULE PO SCH ×2 (08:17→20:33)
--- NOTE | 2017-01-30 08:39 | P.CONS ---
History of Present Illness - Reason for Consult Consult date: 01/29/17 Medical management Requesting physician: Cesra Quan - Chief Complaint Chronic diverticulitis post laparoscopic sigmoid colectomy. - History of Present Illness his is a 51-year-old male one of my patient with a previous medical history significant for asthma, GERD, hyperlipidemia, eczema, and diverticulosis patient was hospitalized back in September 2016 for acute episode of diverticulitis and at that time he was treated with IV antibiotic and had a computed tomography scan at that time that showed a microperforation patient also had suffered from significant diverticulitis about 5-6 years ago, patient was seen as a follow-up with Dr. flores and attempted colonoscopy showed a significant stenosis of the abdomen with the muscular hypertrophy after he underwent barium enema was recommended for the patient to go for laparoscopic sigmoid colectomy that was done today by Dr. quan and we were asked to see the patient for medical management. Review of Systems Constitutional: Denies chronic headaches, Denies fever, Denies lethargy, Denies weakness, Denies weight gain, Denies weight loss Eyes: denies blurred vision, denies bulging eye, denies decreased vision, denies diplopia, denies discharge Ears: deny: decreased hearing Ears, nose, mouth and throat: Denies dysphagia, Denies neck lump, Denies swelling in throat, Denies sore throat Cardiovascular: Denies chest pain, Denies dyspnea on exertion, Denies paroxysmal nocturnal dyspnea, Denies phlebitis, Denies rapid heart beat, Denies shortness of breath, Denies syncope Respiratory: Denies congestion, Denies cough with sputum, Denies hemoptysis, Denies home oxygen, Denies sleep apnea, Denies snoring, Denies wheezing Gastrointestinal: Reports abdominal pain, Reports nausea, Denies bloating, Denies vomiting Genitourinary: Denies dysuria Musculoskeletal: Denies myalgias Musculoskeletal: absent: ankle pain, ankle stiffness, ankle swelling, elbow pain , elbow stiffness, elbow swelling, foot pain, foot stiffness, foot swelling, hand pain, hand stiffness, hand swelling, hip pain, hip stiffness, hip swelling , knee pain, knee stiffness, knee swelling, shoulder pain, shoulder stiffness, shoulder swelling, wrist pain, wrist stiffness, wrist swelling Integumentary: Denies pruritus, Denies rash Neurological: Denies numbness, Denies weakness Psychiatric: Denies anxiety, Denies depression Endocrine: Denies fatigue, Denies weight change Past Medical History Past Medical History: Asthma, GERD/Reflux, Skin Disorder Additional Past Medical History / Comment(s): Hernia-left inguinal. Diverticulitis-PELVIC ABCESS. PALMS OF HANDS DRY, FLAKING. History of Any Multi-Drug Resistant Organisms: None Reported Past Surgical History: Hernia Repair Additional Past Surgical History / Comment(s): Double hernia at . Sinus surgery in 2000. COLONOSCOPY, laparoscopic sigmoid colectomy. Past Anesthesia/Blood Transfusion Reactions: Previous Problems w/ Anesthesia Additional Past Anesthesia/Blood Transfusion Reaction / Comm: Took a long time to wake up with nasal surgery. Past Psychological History: No Psychological Hx Reported Smoking Status: Never smoker Past Alcohol Use History: Occasional Past Drug Use History: None Reported - Past Family History Father Family Medical History: Cancer Mother Family Medical History: No Reported History Brother(s) Family Medical History: No Reported History Sister(s) Family Medical History: No Reported History Medications and Allergies Home Medications Medication Instructions Recorded Confirmed Type Budesonide-Formot 160-4.5 Mcg 2 puff INHALATION RT-DAILY 09/28/16 01/29/17 History [Symbicort 160-4.5 Mcg Inhaler] Acetaminophen [Tylenol] 1,000 mg PO Q4-6H PRN 10/19/16 01/29/17 History Aspirin 81 mg PO DAILY PRN 12/22/16 01/20/17 History Glucosamine/Chondro Hernandez A [Cosamin 1 each PO DAILY 12/22/16 01/20/17 History Ds Tablet] Ibuprofen [Motrin] 200 - 400 mg PO Q6HR PRN 12/22/16 01/20/17 History Multivitamin [Men's Multi-Vitamin] 1 each PO DAILY 12/22/16 01/20/17 History Mv-Min/Vit C/Glut/Lysine/Hc124 1 each PO DAILY 12/22/16 01/29/17 History [Airborne Tablet Chewable] Omeprazole [PriLOSEC] 20 mg PO AC-BRKFST 12/22/16 01/29/17 History Allergies Allergy/AdvReac Type Severity Reaction Status Date / Time No Known Allergies Allergy Verified 01/20/17 15:11 Physical Exam Vitals: Vital Signs Temp Pulse Pulse Resp BP BP Pulse Ox 01/29/17 13:28 14 99 01/29/17 13:15 81 14 129/78 99 01/29/17 13:00 81 14 132/79 100 01/29/17 12:45 82 16 129/76 100 01/29/17 12:36 97.8 F 87 16 133/77 100 01/29/17 07:00 97.6 F 68 16 131/87 99 Intake and Output 01/28/17 01/29/17 01/29/17 22:59 06:59 14:59 Intake Total 300 2200 Output Total 250 Balance 300 1950 Intake: IV 300 2200 Output: Urine 200 Estimated Blood Loss 50 - Constitutional General appearance: mild distress - EENT Eyes: anicteric sclerae, EOMI, PERRLA, no ptosis, no scleral icterus, normal appearance ENT: hearing grossly normal, NA/AT, normal oropharynx, no thrush Ears: bilateral: normal - Neck Neck: no lymphadenopathy, normal ROM, no rigidity, no stridor, no thyromegaly Carotids: bilateral: upstroke normal Thyroid: bilateral: normal size - Respiratory Respiratory: bilateral: diminished, negative: dullness, rales, rhonchi, wheezing , prolonged expiration, prolonged inspiration - Cardiovascular Rhythm: regular Heart sounds: normal: S1, S2 Abnormal Heart Sounds: no systolic murmur, no S3 Gallop, no S4 Gallop, no click - Gastrointestinal General gastrointestinal: decreased bowel sounds, soft, tenderness - Integumentary Integumentary: normal, normal turgor - Neurologic Neurologic: CNII-XII intact - Musculoskeletal Musculoskeletal: strength equal bilaterally - Psychiatric Psychiatric: A&O x's 3, appropriate affect, intact judgment & insight Results CBC & Chem 7: 01/29/17 07:10 01/29/17 07:03 Assessment and Plan Plan: Assessment and plan: 1. Postoperative day #0 status post laparoscopic assisted sigmoid colectomy as a treatment for chronic diverticulitis with microperforation of the sigmoid colon. Patient was instructed about the use of incentive spirometer, continue IV fluid, continue current pain management as outlined by general surgery, continue DVT prophylaxis, continue to monitor the patient CBC and CMP the next 24 hours, continue IV antibiotic. 2. History of asthma. Continue albuterol 2.5 mg nebulization as needed. 3. History of eczema. Stable at this time. 4. GERD. Continue Protonix 40 mg IV push every 24 hours. 5. Hyperlipidemia. Stable. 6. DVT prophylaxis. Bilateral knee-high GUY hose, heparin 5000 units subcutaneously every 12 hours. 7. GI prophylaxis. Continue Protonix 40 mg IV push every 24 hours[address] you Dr[address] Quan for allowing me to participate in the care of your patient we will continue to follow the patient along with you.
[2017-01-30] MEDS: METOCLOPRAMIDE 5 MG/ML 2 ML VIAL IVP PRN (10:27)
--- NOTE | 2017-01-30 10:58 | P.PN ---
Subjective This is a 51-year-old male one of my patient with a previous medical history significant for asthma, GERD, hyperlipidemia, eczema, and diverticulosis patient was hospitalized back in September 2016 for acute episode of diverticulitis and at that time he was treated with IV antibiotic and had a computed tomography scan at that time that showed a microperforation patient also had suffered from significant diverticulitis about 5-6 years ago, patient was seen as a follow-up with Dr. Edmonds and attempted colonoscopy showed a significant stenosis of the abdomen with the muscular hypertrophy after he underwent barium enema was recommended for the patient to go for laparoscopic sigmoid colectomy that was done today by Dr. quan and we were asked to see the patient for medical management. 01/30: Patient states he is burping but has not passed any gas. He has been afebrile. Pulse ox is 97% on room air. IV fluids will be decreased to 75 mL per hour. Pain is currently well controlled. Objective - Vital Signs Vital signs: Vital Signs Temp 97.4 F L 01/30/17 07:00 Pulse 71 01/30/17 07:00 Resp 16 01/30/17 07:00 BP 115/64 01/30/17 07:00 Pulse Ox 96 01/30/17 07:00 Intake & Output 01/29/17 01/30/17 01/30/17 18:59 06:59 18:59 Intake Total 2750 1250 Output Total 400 2200 Balance 2350 -950 Intake: IV 2750 1250 D5-0.45% NaCl with KCl 1250 20Meq/l 1,000 ml @ 125 mls/hr IV .Q8H [facility] Rx#: [id number] Output: Urine 350 2200 Uretheral (Stoner) 2200 Estimated Blood Loss 50 Other: Voiding Method Indwelling Catheter Indwelling Catheter - Exam General appearance: mild distress - EENT Eyes: anicteric sclerae, EOMI, PERRLA, no ptosis, no scleral icterus, normal appearance ENT: hearing grossly normal, NA/AT, normal oropharynx, no thrush Ears: bilateral: normal - Neck Neck: no lymphadenopathy, normal ROM, no rigidity, no stridor, no thyromegaly Carotids: bilateral: upstroke normal Thyroid: bilateral: normal size - Respiratory Respiratory: bilateral: diminished, negative: dullness, rales, rhonchi, wheezing , prolonged expiration, prolonged inspiration - Cardiovascular Rhythm: regular Heart sounds: normal: S1, S2 Abnormal Heart Sounds: no systolic murmur, no S3 Gallop, no S4 Gallop, no click - Gastrointestinal General gastrointestinal: decreased bowel sounds, soft, tenderness - Integumentary Integumentary: normal, normal turgor - Neurologic Neurologic: CNII-XII intact - Musculoskeletal Musculoskeletal: strength equal bilaterally - Psychiatric Psychiatric: A&O x's 3, appropriate affect, intact judgment & insight - Labs CBC & Chem 7: 01/30/17 06:34 01/30/17 06:34 Labs: Abnormal Lab Results - Last 24 Hours (Table) 01/30/17 01/30/17 Range/Units 06:34 06:34 WBC 12.1 H (3.8-10.6) k/uL Hgb 12.7 L (13.0-17.5) gm/dL Hct 36.4 L (39.0-53.0) % Neutrophils # 9.7 H (1.3-7.7) k/uL Glucose 139 H (74-99) mg/dL Calcium 8.3 L (8.4-10.2) mg/dL Assessment and Plan Plan: 1. Status post laparoscopic assisted sigmoid colectomy as a treatment for chronic diverticulitis with microperforation of the sigmoid colon. Patient was instructed about the use of incentive spirometer, continue IV fluid, continue current pain management as outlined by general surgery, continue DVT prophylaxis , continue to monitor the patient CBC and CMP the next 24 hours, continue IV antibiotic. 2. History of asthma. Continue albuterol 2.5 mg nebulization as needed. 3. History of eczema. Stable at this time. 4. GERD. Continue Protonix 40 mg IV push every 24 hours. 5. Hyperlipidemia. Stable. 6. DVT prophylaxis. Bilateral knee-high GUY hose, heparin 5000 units subcutaneously every 12 hours. 7. GI prophylaxis. Continue Protonix 40 mg IV push every 24 hours. Discharge plan: Return home Impression and plan of care have been directed as dictated by the signing physician. Olivia Iniguez nurse practitioner acting as scribe for signing physician.
--- NOTE | 2017-01-30 11:28 | P.PN ---
Subjective Principal diagnosis: Postoperative day 1 laparoscopic sigmoid colectomy The patient is having some nausea and vomiting. He did vomit up his entereg. He did ambulate in the crook last night. None this morning because he feels weak. Objective - Vital Signs Vital signs: Vital Signs Temp 97.4 F L 01/30/17 07:00 Pulse 71 01/30/17 07:00 Resp 16 01/30/17 07:00 BP 115/64 01/30/17 07:00 Pulse Ox 96 01/30/17 07:00 Intake & Output 01/29/17 01/30/17 01/30/17 18:59 06:59 18:59 Intake Total 2750 1250 400 Output Total 400 2200 500 Balance 2350 -950 -100 Intake: IV 2750 1250 D5-0.45% NaCl with KCl 1250 20Meq/l 1,000 ml @ 125 mls/hr IV .Q8H [facility] Rx#: [id number] Oral 400 Output: Urine 350 2200 500 Uretheral (Stoner) 2200 500 Estimated Blood Loss 50 Other: Voiding Method Indwelling Catheter Indwelling Catheter Indwelling Catheter - Constitutional General appearance: Present: cooperative, mild distress (Appears uncomfortable) - Respiratory Respiratory: bilateral: CTA, diminished (At the bases), negative: rhonchi, wheezing - Cardiovascular Rhythm: regular - Gastrointestinal General gastrointestinal: Present: absent bowel sounds, soft Localized gastrointestinal: surgical scar: diffuse (Dressing is intact clean and dry) - Labs CBC & Chem 7: 01/30/17 06:34 01/30/17 06:34 Labs: Abnormal Lab Results - Last 24 Hours (Table) 01/30/17 01/30/17 Range/Units 06:34 06:34 WBC 12.1 H (3.8-10.6) k/uL Hgb 12.7 L (13.0-17.5) gm/dL Hct 36.4 L (39.0-53.0) % Neutrophils # 9.7 H (1.3-7.7) k/uL Glucose 139 H (74-99) mg/dL Calcium 8.3 L (8.4-10.2) mg/dL Assessment and Plan (1) Diverticulitis Status: Acute (2) Nausea and vomiting Status: Acute Plan: We'll change the Reglan to scheduled. If he continues to vomit he may need an NG tube placed. Encouraged activity. Small amounts of liquids is ice chips or sips as needed. Questions encouraged and answered. Progressing slowly.
[2017-01-30] MEDS: METOCLOPRAMIDE 5 MG/ML 2 ML VIAL IVP SCH ×3 (13:19→23:33)
[2017-01-31] MEDS: D5-0.45% NACL WITH KCL 20MEQ/L 1,000 ML IV SCH (03:27)
[2017-01-31] MEDS: ONDANSETRON 4 MG/2 ML VIAL IVP PRN (03:28)
[2017-01-31] MEDS: HYDROmorphone 1 MG/ML 1 ML SYRINGE IVP PRN ×6 (03:30→22:00)
[2017-01-31] MEDS: METOCLOPRAMIDE 5 MG/ML 2 ML VIAL IVP SCH ×4 (06:02→23:11)
[2017-01-31 07:23] LABS: Basophils % (A) 0 %; CH 29.2; CHCM 35.1; Eosinophils % (A) 1 %; HCT 35.8 % (39.0-53.0); HDW 2.58; HGB 12.5 gm/dL (13.0-17.5); Luc # (Auto) 0.11; Luc % (Auto) 1; Lymphocytes # (A) 1.6 k/uL (1.0-4.8); Lymphocytes % (A) 19 %; MCHC 34.8 g/dL (31.0-37.0); MCV 83.4 fL (80.0-100.0); Mean Platelet Volume 6.3; Monocytes # (A) 0.7 k/uL (0-1.0); Monocytes % (A) 8 %; Neutrophils # (A) 6.1 k/uL (1.3-7.7); Neutrophils % (A) 71 %; RBC 4.29 m/uL (4.30-5.90); RDW 12.8 % (11.5-15.5); WBC 8.6 k/uL (3.8-10.6); WBC (Perox) 9.17
[2017-01-31 07:34] LABS: Anion Gap 8 mmol/L; Blood Urea Nitrogen 9 mg/dL (9-20); Calcium 8.5 mg/dL (8.4-10.2); Carbon Dioxide 27 mmol/L (22-30); Chloride 105 mmol/L (98-107); Glucose 104 mg/dL (74-99); Non-African American GFR(MDRD) >60 (>60 ml/min/1.73 sqM); Potassium 4.1 mmol/L (3.5-5.1); Sodium 140 mmol/L (137-145)
[2017-01-31] MEDS: SYMBICORT 160-4.5 MCG INHALER INHALATION SCH (07:51)
[2017-01-31] MEDS: HEPARIN SODIUM,PORCINE 5,000 UNIT/ML 1 ML VIAL SQ SCH ×3 (08:13→23:11)
[2017-01-31] MEDS: ALVIMOPAN 12 MG CAPSULE PO SCH ×2 (08:13→20:42)
[2017-01-31] MEDS: FAMOTIDINE 20 MG/2 ML VIAL IV SCH ×2 (09:08→20:42)
--- NOTE | 2017-01-31 09:38 | P.PN ---
Subjective This is a 51-year-old male one of my patient with a previous medical history significant for asthma, GERD, hyperlipidemia, eczema, and diverticulosis patient was hospitalized back in September 2016 for acute episode of diverticulitis and at that time he was treated with IV antibiotic and had a computed tomography scan at that time that showed a microperforation patient also had suffered from significant diverticulitis about 5-6 years ago, patient was seen as a follow-up with Dr. Edmonds and attempted colonoscopy showed a significant stenosis of the abdomen with the muscular hypertrophy after he underwent barium enema was recommended for the patient to go for laparoscopic sigmoid colectomy that was done today by Dr. quan and we were asked to see the patient for medical management. 01/30: Patient states he is burping but has not passed any gas. He has been afebrile. Pulse ox is 97% on room air. IV fluids will be decreased to 75 mL per hour. Pain is currently well controlled. 01/31: Patient is tolerating clear liquid diet. He states he ambulated multiple times yesterday around the floor as taking a shower this morning. No bowel movement. He has been hemodynamically stable and afebrile. Objective - Vital Signs Vital signs: Vital Signs Temp 97.7 F 01/31/17 07:00 Pulse 61 01/31/17 07:00 Resp 16 01/31/17 07:00 BP 137/75 01/31/17 07:00 Pulse Ox 96 01/31/17 07:00 Intake & Output 01/30/17 01/31/17 01/31/17 18:59 06:59 18:59 Intake Total 1100 1500 518 Output Total 500 Balance 600 1500 518 Intake: IV 1500 D5-0.45% NaCl with KCl 1500 20Meq/l 1,000 ml @ 125 mls/hr IV .Q8H [facility] Rx#: [id number] Oral 1100 518 Output: Urine 500 Uretheral (Stoner) 500 Other: Voiding Method Indwelling Catheter Toilet # Voids 1 2 - Exam General appearance: mild distress - EENT Eyes: anicteric sclerae, EOMI, PERRLA, no ptosis, no scleral icterus, normal appearance ENT: hearing grossly normal, NA/AT, normal oropharynx, no thrush Ears: bilateral: normal - Neck Neck: no lymphadenopathy, normal ROM, no rigidity, no stridor, no thyromegaly Carotids: bilateral: upstroke normal Thyroid: bilateral: normal size - Respiratory Respiratory: bilateral: diminished, negative: dullness, rales, rhonchi, wheezing , prolonged expiration, prolonged inspiration - Cardiovascular Rhythm: regular Heart sounds: normal: S1, S2 Abnormal Heart Sounds: no systolic murmur, no S3 Gallop, no S4 Gallop, no click - Gastrointestinal General gastrointestinal: decreased bowel sounds, soft, tenderness - Integumentary Integumentary: normal, normal turgor - Neurologic Neurologic: CNII-XII intact - Musculoskeletal Musculoskeletal: strength equal bilaterally - Psychiatric Psychiatric: A&O x's 3, appropriate affect, intact judgment & insight - Labs CBC & Chem 7: 01/31/17 06:41 01/31/17 06:41 Labs: Abnormal Lab Results - Last 24 Hours (Table) 01/31/17 01/31/17 Range/Units 06:41 06:41 RBC 4.29 L (4.30-5.90) m/uL Hgb 12.5 L (13.0-17.5) gm/dL Hct 35.8 L (39.0-53.0) % Glucose 104 H (74-99) mg/dL Assessment and Plan Plan: 1. Status post laparoscopic assisted sigmoid colectomy as a treatment for chronic diverticulitis with microperforation of the sigmoid colon. Patient was instructed about the use of incentive spirometer, continue IV fluid, continue current pain management as outlined by general surgery, continue DVT prophylaxis , continue to monitor the patient CBC and CMP the next 24 hours. 2. History of asthma. Continue albuterol 2.5 mg nebulization as needed. 3. History of eczema. Stable at this time. 4. GERD. Continue Protonix 40 mg IV push every 24 hours. 5. Hyperlipidemia. Stable. 6. DVT prophylaxis. Bilateral knee-high GUY hose, heparin 5000 units subcutaneously every 12 hours. 7. GI prophylaxis. Continue Protonix 40 mg IV push every 24 hours. Discharge plan: Return home Impression and plan of care have been directed as dictated by the signing physician. Olivia Iniguez nurse practitioner acting as scribe for signing physician.
[2017-01-31] MEDS: PANTOPRAZOLE 40 MG/10 ML VIAL IVP SCH (10:10)
--- NOTE | 2017-01-31 10:29 | P.PN ---
Subjective The patient's feeling better today. No further nausea or vomiting. He may have passed some flatus. He is starting to take some clear liquids. Objective - Vital Signs Vital signs: Vital Signs Temp 97.7 F 01/31/17 07:00 Pulse 61 01/31/17 07:00 Resp 16 01/31/17 07:00 BP 137/75 01/31/17 07:00 Pulse Ox 96 01/31/17 07:00 Intake & Output 01/30/17 01/31/17 01/31/17 18:59 06:59 18:59 Intake Total 1100 1500 518 Output Total 500 Balance 600 1500 518 Intake: IV 1500 D5-0.45% NaCl with KCl 1500 20Meq/l 1,000 ml @ 125 mls/hr IV .Q8H [facility] Rx#: [id number] Oral 1100 518 Output: Urine 500 Uretheral (Stoner) 500 Other: Voiding Method Indwelling Catheter Toilet # Voids 1 2 - Constitutional General appearance: Present: cooperative, no acute distress - Respiratory Respiratory: bilateral: CTA - Gastrointestinal General gastrointestinal: Present: decreased bowel sounds, soft, tenderness ( Incisional) Localized gastrointestinal: surgical scar: diffuse (Some mild ecchymosis by the incisions but no cellulitis) - Labs CBC & Chem 7: 01/31/17 06:41 01/31/17 06:41 Labs: Abnormal Lab Results - Last 24 Hours (Table) 01/31/17 01/31/17 Range/Units 06:41 06:41 RBC 4.29 L (4.30-5.90) m/uL Hgb 12.5 L (13.0-17.5) gm/dL Hct 35.8 L (39.0-53.0) % Glucose 104 H (74-99) mg/dL Assessment and Plan (1) Diverticulitis Status: Acute (2) Nausea and vomiting Status: Acute Plan: Slowly advance diet as tolerated. He is ambulating well. Continue incentive spirometry. Progressing slowly.
[2017-02-01] MEDS: METOCLOPRAMIDE 5 MG/ML 2 ML VIAL IVP SCH (05:21)
[2017-02-01] MEDS: D5-0.45% NACL WITH KCL 20MEQ/L 1,000 ML IV SCH (05:21)
[2017-02-01] MEDS: HYDROmorphone 1 MG/ML 1 ML SYRINGE IVP PRN (05:26)
[2017-02-01 06:44] LABS: Basophils % (A) 0 %; CH 29.3; CHCM 35.6; Eosinophils # (A) 0.1 k/uL (0-0.7); Eosinophils % (A) 2 %; HCT 35.8 % (39.0-53.0); HDW 2.63; HGB 12.8 gm/dL (13.0-17.5); Luc # (Auto) 0.08; Luc % (Auto) 1; Lymphocytes % (A) 17 %; MCH 29.4 pg (25.0-35.0); MCHC 35.6 g/dL (31.0-37.0); MCV 82.3 fL (80.0-100.0); Mean Platelet Volume 6.1; Monocytes # (A) 0.6 k/uL (0-1.0); Monocytes % (A) 10 %; Neutrophils # (A) 3.9 k/uL (1.3-7.7); Neutrophils % (A) 69 %; RBC 4.35 m/uL (4.30-5.90); RDW 12.5 % (11.5-15.5); WBC 5.6 k/uL (3.8-10.6); WBC (Perox) 6.18
[2017-02-01 07:10] LABS: Anion Gap 6 mmol/L; Blood Urea Nitrogen 7 mg/dL (9-20); Calcium 8.6 mg/dL (8.4-10.2); Carbon Dioxide 29 mmol/L (22-30); Chloride 104 mmol/L (98-107); Glucose 112 mg/dL (74-99); Non-African American GFR(MDRD) >60 (>60 ml/min/1.73 sqM); Potassium 4.5 mmol/L (3.5-5.1); Sodium 139 mmol/L (137-145)
[2017-02-01] MEDS: HEPARIN SODIUM,PORCINE 5,000 UNIT/ML 1 ML VIAL SQ SCH (07:13)
[2017-02-01] MEDS: FAMOTIDINE 20 MG/2 ML VIAL IV SCH (07:14)
[2017-02-01] MEDS: ALVIMOPAN 12 MG CAPSULE PO SCH (07:14)
[2017-02-01] MEDS: SYMBICORT 160-4.5 MCG INHALER INHALATION SCH (07:44)
[2017-02-01] MEDS: PANTOPRAZOLE 40 MG/10 ML VIAL IVP SCH (11:23)
[2017-02-01] MEDS ORDERED: HYDROcodone/APAP 7.5-325MG 1 EACH TAB PO PRN (13:18)
[2017-02-01 14:48] VITALS: BP 147/84; PULSE 61; RESP 17; TEMP 98.4
--- NOTE | 2017-02-01 15:39 | P.PN ---
Subjective This is a 51-year-old male one of my patient with a previous medical history significant for asthma, GERD, hyperlipidemia, eczema, and diverticulosis patient was hospitalized back in September 2016 for acute episode of diverticulitis and at that time he was treated with IV antibiotic and had a computed tomography scan at that time that showed a microperforation patient also had suffered from significant diverticulitis about 5-6 years ago, patient was seen as a follow-up with Dr. Edmonds and attempted colonoscopy showed a significant stenosis of the abdomen with the muscular hypertrophy after he underwent barium enema was recommended for the patient to go for laparoscopic sigmoid colectomy that was done today by Dr. quan and we were asked to see the patient for medical management. 3: Patient states he is burping but has not passed any gas. He has been afebrile. Pulse ox is 97% on room air. IV fluids will be decreased to 75 mL per hour. Pain is currently well controlled. 4: Patient is tolerating clear liquid diet. He states he ambulated multiple times yesterday around the floor as taking a shower this morning. No bowel movement. He has been hemodynamically stable and afebrile. 5: Patient is passing gas but has not had a bowel movement. He is tolerating his diet without problems. [place] added for pain control. He is scheduled for discharge later today. Objective - Vital Signs Vital signs: Vital Signs Temp 96.9 F L 02/01/17 07:46 Pulse 57 L 02/01/17 08:00 Resp 16 02/01/17 08:00 BP 136/82 02/01/17 07:46 Pulse Ox 96 02/01/17 07:46 Intake & Output 01/31/17 02/01/17 02/01/17 18:59 06:59 18:59 Intake Total 998 1187.5 Balance 998 1187.5 Weight 63.503 kg Intake: Intake, IV Titration 787.5 Amount D5-0.45% NaCl with KCl 787.5 20Meq/l 1,000 ml @ 75 mls /hr IV .[id number] [facility] Rx#: [id number] Oral 998 400 Other: Voiding Method Toilet Toilet # Voids 2 2 1 - Exam General appearance: mild distress - EENT Eyes: anicteric sclerae, EOMI, PERRLA, no ptosis, no scleral icterus, normal appearance ENT: hearing grossly normal, NA/AT, normal oropharynx, no thrush Ears: bilateral: normal - Neck Neck: no lymphadenopathy, normal ROM, no rigidity, no stridor, no thyromegaly Carotids: bilateral: upstroke normal Thyroid: bilateral: normal size - Respiratory Respiratory: bilateral: diminished, negative: dullness, rales, rhonchi, wheezing , prolonged expiration, prolonged inspiration - Cardiovascular Rhythm: regular Heart sounds: normal: S1, S2 Abnormal Heart Sounds: no systolic murmur, no S3 Gallop, no S4 Gallop, no click - Gastrointestinal General gastrointestinal: decreased bowel sounds, soft, tenderness - Integumentary Integumentary: normal, normal turgor - Neurologic Neurologic: CNII-XII intact - Musculoskeletal Musculoskeletal: strength equal bilaterally - Psychiatric Psychiatric: A&O x's 3, appropriate affect, intact judgment & insight - Labs CBC & Chem 7: 02/01/17 06:27 02/01/17 06:27 Labs: Abnormal Lab Results - Last 24 Hours (Table) 02/01/17 02/01/17 Range/Units 06:27 06:27 Hgb 12.8 L (13.0-17.5) gm/dL Hct 35.8 L (39.0-53.0) % BUN 7 L (9-20) mg/dL Glucose 112 H (74-99) mg/dL Assessment and Plan Plan: 1. Status post laparoscopic assisted sigmoid colectomy as a treatment for chronic diverticulitis with microperforation of the sigmoid colon. Patient was instructed about the use of incentive spirometer, continue IV fluid, continue current pain management as outlined by general surgery, continue DVT prophylaxis. 2. History of asthma. Continue albuterol 2.5 mg nebulization as needed. 3. History of eczema. Stable at this time. 4. GERD. Continue Protonix 40 mg IV push every 24 hours. 5. Hyperlipidemia. Stable. 6. DVT prophylaxis. Bilateral knee-high GUY hose, heparin 5000 units subcutaneously every 12 hours. 7. GI prophylaxis. Continue Protonix 40 mg IV push every 24 hours. Discharge plan: Return home Impression and plan of care have been directed as dictated by the signing physician. Olivia Iniguez nurse practitioner acting as scribe for signing physician.
--- NOTE | 2017-02-01 17:18 | P.DS ---
Providers Date of admission: 01/29/17 06:41 Expected date of discharge: 02/01/17 Attending physician: Cesar Mancera Consults: 01/29/17 12:44 Consult Physician Routine Consulting Provider: Yanely Bryant Consult Reason/Comments: Medical management Do you want consulting provider notified?: Yes Primary care physician: Yanely Bryant - Discharge Diagnosis(es) (1) Diverticulitis Patient underwent elective laparoscopic sigmoid colectomy Wednesday. Postoperatively he has done well. His diet has been gradually advanced. He was seen by medicine on consultation. Currently his pain is minimal. He would like to go home today. He is passing flatus without bowel movements. His incisions are healing appropriately without significant tenderness. He will follow up me in the office again in one week. He'll be discharged on a low fiber diet. Prescription for [place] was provided. Status: Acute Plan - Discharge Summary New Discharge Prescriptions: No Action Budesonide-Formot 160-4.5 Mcg [Symbicort 160-4.5 Mcg Inhaler] 2 puff INHALATION RT-DAILY Acetaminophen [Tylenol] 1,000 mg PO Q4-6H PRN PRN Reason: Pain Multivitamin [Men's Multi-Vitamin] 1 tab PO DAILY Ibuprofen [Motrin] 200 - 400 mg PO Q6HR PRN PRN Reason: Pain Glucosamine/Chondro Hernandez A [Cosamin Ds Tablet] 1 tab PO DAILY Omeprazole [PriLOSEC] 20 mg PO AC-BRKFST Mv-Min/Vit C/Glut/Lysine/Hc124 [Airborne Tablet Chewable] 1 tab PO DAILY Aspirin 81 mg PO DAILY PRN PRN Reason: Pain Discharge Medication List Budesonide-Formot 160-4.5 Mcg [Symbicort 160-4.5 Mcg Inhaler] 2 puff INHALATION RT-DAILY 09/28/16 [History] Acetaminophen [Tylenol] 1,000 mg PO Q4-6H PRN 10/19/16 [History] Aspirin 81 mg PO DAILY PRN 12/22/16 [History] Glucosamine/Chondro Hernandez A [Cosamin Ds Tablet] 1 tab PO DAILY 12/22/16 [History] Ibuprofen [Motrin] 200 - 400 mg PO Q6HR PRN 12/22/16 [History] Multivitamin [Men's Multi-Vitamin] 1 tab PO DAILY 12/22/16 [History] Mv-Min/Vit C/Glut/Lysine/Hc124 [Airborne Tablet Chewable] 1 tab PO DAILY [History] Omeprazole [PriLOSEC] 20 mg PO AC-BRKFST 12/22/16 [History] Follow up Appointment(s)/Referral(s): Cesar Mancera MD [Medical Doctor] - 02/10/17 2:50 pm Yanely Bryant MD [Primary Care Provider] - 02/08/17 3:00 pm Patient Instructions/Handouts: Colectomy (DC) Discharge Disposition: HOME SELF-CARE
== END 2017-02-01 15:42 | disposition home or self-care (01) | DRG 331 ==
LOC: 2ORWHC 06:41 → EDSTATUS 07:45 → 3SUR 12:17
PROVIDERS: ADMIT Surgery; ATTEND Surgery
PROC: 0DTN4ZZ Resection of Sigmoid Colon, Percutaneous Endoscopic Approach (ICD-10-PCS; principal; 2017-01-29 07:45)
DX: K57.32 Diverticulitis of large intestine without perforation or abscess without bleeding (principal); E78.5 Hyperlipidemia, unspecified; K57.30 Diverticulosis of large intestine without perforation or abscess without bleeding; K40.90 Unilateral inguinal hernia, without obstruction or gangrene, not specified as recurrent; K59.00 Constipation, unspecified; J45.909 Unspecified asthma, uncomplicated; K21.9 Gastro-esophageal reflux disease without esophagitis; R11.2 Nausea with vomiting, unspecified; R53.1 Weakness; L30.9 Dermatitis, unspecified; K66.0 Peritoneal adhesions (postprocedural) (postinfection); Z79.1 Long term (current) use of non-steroidal anti-inflammatories (NSAID); Z79.51 Long term (current) use of inhaled steroids; Z79.82 Long term (current) use of aspirin; Z80.7 Family history of other malignant neoplasms of lymphoid, hematopoietic and related tissues; Z80.0 Family history of malignant neoplasm of digestive organs; Z79.899 Other long term (current) drug therapy; Z87.19 Personal history of other diseases of the digestive system; Z86.19 Personal history of other infectious and parasitic diseases
CPT/HCPCS: 80048; 80051; 85025; 86850; 86900; 86901; 88307; 94640

== ENCOUNTER → 2017-11-15 | Outpatient (CLI) | payer MEDICAID ==
--- NOTE | 2017-11-16 08:03 | XR ---
EXAMINATION TYPE: XR chest 2V DATE OF EXAM: 11/15/2017 COMPARISON: NONE HISTORY: Cough, congestion, and fever TECHNIQUE: Frontal and lateral views of the chest are obtained. FINDINGS: There is no focal air space opacity, pleural effusion, or pneumothorax seen. The cardiac silhouette size is within normal limits. The osseous structures are intact. Minimal multilevel dege nerative changes of the thoracic spine are noted. IMPRESSION: No acute cardiopulmonary process.
== END | disposition home or self-care (01) ==
LOC: RADXRMAIN 16:01
PROVIDERS: ATTEND Internal Medicine
DX: R05 Cough (principal)
CPT/HCPCS: 71046

== ENCOUNTER → 2018-04-21 | Outpatient (CLI) | payer MEDICAID ==
--- NOTE | 2018-04-21 18:16 | CONS ---
CONSULTATION DATE OF SERVICE: 04/21/2018 52-year-old gentleman has been evaluated in the sleep center for possible obstructive sleep apnea-hypopnea syndrome. HISTORY OF PRESENT ILLNESS/SLEEP WAKE EVALUATION: SLEEP SCHEDULE: Patient usual sleep schedule on working days from 9:00 p.m. to 6 or 6:15 am, on weekends from 9:00 p.m. until 8:30 am. FALLING ASLEEP: No problem with falling asleep. DURING SLEEP: The patient usually sleeps on the side position with extremely loud snoring according to his . He wakes up from sleep once in the middle of the night with nocturia. DURING THE DAY/SLEEP WAKE EVALUATION: [place] Sleepiness Scale is 2. PAST MEDICAL HISTORY: Positive for asthma, nasal breathing problems, acid reflux. PAST SURGICAL HISTORY: Nasal surgery, colon resection for possible diverticulitis, for small perforation. MEDICATIONS: Symbicort, omeprazole, over the counter sinuses pills. SOCIAL HISTORY: Negative for smoking. Alcohol consumption occasional. FAMILY HISTORY: Asthma, snoring. REVIEW OF SYSTEMS: Loud snoring, awakenings from sleep, some difficulties to breathe through the nose. PHYSICAL EXAM: gentleman without distress. BP 120/83, HR 64, RR 16, height 5 feet 8 inches, weight 160.0, BMI 24.3, temperature 98.0, oxygen saturation on room air 97%. Oropharynx extremely low position of soft palate, significant restriction of nasal breathing on the both sides, probably nasal septum deviation. Neck: Supple, no JVD. Thyroid is not palpable. LUNGS Clear to percussion and to auscultation. Good air exchange. No wheezing or rhonchi. HEART S1, S2 regular. No murmurs, gallops, or rubs. ABDOMEN Soft and nontender. Bowel sounds are present. No organomegaly appreciated. EXTREMITIES No clubbing or cyanosis. [employer] SALES Awake, alert, and oriented X3. Cranial nerves 2 to 7 intact. There is no fasciculation or atrophy. noted. No focal deficits observed. IMPRESSION: 1. Loud snoring, extremely low position of soft palate. Restriction of nasal breathing, obstructive sleep apnea-hypopnea syndrome. 2. Asthma. 3. Acid reflux. 4. History of sinus problems. 5. Possible nasal septum deviation with restriction of nasal breathing. 6. Status post colon resection for small perforation. 7. Status post nasal surgery. PLAN: 1. Polysomnography for evaluation of patient's breathing during sleep. 2. CPAP/BiPAP titration if sleep study confirms obstructive sleep apnea-hypopnea syndrome. 3. Preferable position during sleep on the side. 4. No driving if patient feels any sleepiness. 5. I will see patient for follow up visit to explain results of testing and following plan. Thank you very much for referring this patient for consultation. Sincerely, Patrick Brown MD, PhD, FAASM Diplomat of [place] [employer] [place] [employer] [place] [facility] [place] MMODL / IJN: [id number] /
== END | disposition home or self-care (01) ==
LOC: SLEEP 14:47
PROVIDERS: ATTEND Internal Medicine
DX: G47.33 Obstructive sleep apnea (adult) (pediatric) (principal); J45.909 Unspecified asthma, uncomplicated; K21.9 Gastro-esophageal reflux disease without esophagitis; Z86.79 Personal history of other diseases of the circulatory system; Z79.899 Other long term (current) drug therapy; Z98.890 Other specified postprocedural states
CPT/HCPCS: 99211

== ENCOUNTER → 2018-10-20 | Outpatient (CLI) | payer MEDICAID ==
--- NOTE | 2018-10-20 14:24 | SFUN ---
SLEEP CENTER FOLLOW UP NOTE DATE OF SERVICE: 10/20/2018 A 52-year-old gentleman who has been followed in the Sleep Center for treatment of obstructive sleep apnea-hypopnea syndrome. Recently, patient had diagnostic polysomnogram which showed the patient has obstructive sleep apnea-hypopnea syndrome and then he had CPAP titration. I discussed results of sleep studies with patient in detail. Subsequently, patient was started on treatment with CPAP. Today is his first visit with the CPAP unit. He is able to use equipment every night without any significant problems related to mask fitting, pressure or humidification. The patient sleeps better with the machine, feels more refreshed in the morning. I checked his CPAP unit pressure, it is 8 cm of water. Usage is every night more than 4 hours. Average usage is 7.0 hours. Leak 5 L/minute which is perfect. Apnea-hypopnea index for left month was 3.2, which is absolutely normal. MEDICATIONS: Symbicort, omeprazole, [id number] sinus medications for sinus problem. PHYSICAL EXAM: Patient in no distress. BP 113/77, HR 62, RR 16, weight 169, temp 98.9, oxygen saturation at room air 96%. OROPHARYNX: Low position all the soft palate. Big uvula, small oropharyngeal air space. Neck Supple, no JVD. Thyroid is not palpable. LUNGS Clear to percussion and to auscultation. Good air exchange. No wheezing or rhonchi. HEART S1, S2 regular. No murmurs, gallops, or rubs. ABDOMEN Soft and nontender. Bowel sounds are present. No organomegaly appreciated. EXTREMITIES No clubbing or cyanosis. FRONT END JAVA DEVELOPER Awake, alert, and oriented X3. Cranial nerves 2 to 7 intact. There is no fasciculation or atrophy. noted. No focal deficits observed. IMPRESSION: 1. Obstructive sleep apnea-hypopnea syndrome. Patient demonstrated great compliance with treatment benefitting from treatment. 2. Acid reflux. 3. History of asthma. 4. History of sinus problems. PLAN: 1. Patient will continue to use CPAP equipment every night for the whole night. 2. Sleep hygiene with regular time in bed for 8 hours. 3. No driving if feeling sleepiness. 4. Watching weight. 5. Will maintain prescription for all necessary CPAP supplies including mask, tube, filters. 6. Followup visit in 1 year, or earlier if patient has any problems. Thank you very much for allowing me to participate in the management of your patient. Sincerely, Patrick Brown MD, PhD, FAASM Diplomat of [place] [employer] [employer] Lead Technician [facility] [place] FAIZAN / CANDI: [id number] /
== END ==
LOC: SLEEP 13:13
PROVIDERS: ATTEND Internal Medicine
DX: G47.33 Obstructive sleep apnea (adult) (pediatric) (principal); K21.9 Gastro-esophageal reflux disease without esophagitis; J45.909 Unspecified asthma, uncomplicated

== ENCOUNTER → 2019-02-17 | Outpatient (CLI) | payer MEDICAID ==
[2019-02-17 17:05] LABS: Basophils # (A) 0.1 k/uL (0-0.2); Basophils % (A) 1 %; Eosinophils # (A) 0.7 k/uL (0-0.7); Eosinophils % (A) 10 %; HGB 12.9 gm/dL (13.0-17.5); Lymphocytes # (A) 1.8 k/uL (1.0-4.8); Lymphocytes % (A) 24 %; MCH 28.1 pg (25.0-35.0); MCV 82.6 fL (80.0-100.0); Mean Platelet Volume 6.7; Monocytes # (A) 0.6 k/uL (0-1.0); Monocytes % (A) 8 %; Neutrophils # (A) 4.1 k/uL (1.3-7.7); Neutrophils % (A) 56 %; Platelet Count 221 k/uL (150-450); RBC 4.61 m/uL (4.30-5.90); RDW 12.3 % (11.5-15.5); WBC 7.4 k/uL (3.8-10.6)
== END | disposition home or self-care (01) ==
LOC: LABPAT 15:47
PROVIDERS: ATTEND Anesthesiology
DX: Z01.812 Encounter for preprocedural laboratory examination (principal)
CPT/HCPCS: 85025

== ENCOUNTER 2019-02-22 07:30 | Day surgery (SDC) | payer MEDICAID ==
[2019-02-16 13:34] VITALS: BMI 25.8
[~2019-02-22 07:30] MED LIST changes: -ALVIMOPAN 12 MG CAPSULE PO ONE; +HYDROmorphone 0.5 MG/0.5 ML SYRINGE IVP PRN; +LACTATED RINGERS 1,000 ML IV SCH; +LIDOCAINE 1% 20 ML VIAL (10MG/ML) FOR IV START INTRADERMA PRN; -ONDANSETRON 4 MG/2 ML VIAL IVP ONE; -ceFAZolin 2 GM in SODIUM CHLORIDE 0.9% 100 ML IVPB ONE; +ceFAZolin IN SWFI 2 GM/20 ML SYRINGE IVP ONE; -metroNIDAZOLE-NS PMX 500 MG in SALINE 1 100ML.BAG IVPB ONE
[2019-02-22] MEDS: ONDANSETRON 4 MG/2 ML VIAL IVP ONE ×2 (08:23→12:49)
[2019-02-22] MEDS ORDERED: PROPOFOL 10 MG/ML 20 ML VIAL IV ONE (10:00)
[2019-02-22] MEDS ORDERED: SUCCINYLCHOLINE CHLORIDE 100 MG/5 ML SYR IV ONE (10:00)
[2019-02-22] MEDS ORDERED: fentaNYL (PF) 50 MCG/ML 2 ML AMP ONE (10:00)
[2019-02-22] MEDS ORDERED: LIDOCAINE 1% INJ 10MG/ML (20 ML MDV) ONE (10:00)
[2019-02-22] MEDS ORDERED: ROCURONIUM BROMIDE 10 MG/ML 10 ML VIAL IV ONE (10:00)
[2019-02-22] MEDS ORDERED: HYDROmorphone (PF) 1 MG/ML ONE (10:00)
[2019-02-22] MEDS ORDERED: MIDAZOLAM 2 MG/2 ML VIAL ONE (10:00)
[2019-02-22] MEDS ORDERED: NEOSTIGMINE 1 MG/ML 10 ML VIAL ONE (10:00)
[2019-02-22] MEDS ORDERED: GLYCOPYRROLATE 0.2 MG/ML 2 ML VIAL ONE (10:00)
[2019-02-22] MEDS ORDERED: BUPIVACAINE (PF) 0.5% 30 ML VIAL SQ ONE (10:33)
[2019-02-22] MEDS ORDERED: LACTATED RINGERS 1,000 ML IV ONE ×3 (11:50→12:23)
[2019-02-22] MEDS ORDERED: HYDROcodone/APAP 5-325MG 1 EACH TAB PO PRN (12:11)
[2019-02-22] MEDS ORDERED: NALOXONE 0.4 MG/ML 1 ML VIAL IV PRN (12:11)
--- NOTE | 2019-02-22 12:14 | P.OP ---
Date of Procedure: 02/22/19 Procedure(s) Performed: PREOPERATIVE DIAGNOSIS: Recurrent left inguinal hernia POSTOPERATIVE DIAGNOSIS: Same PROCEDURE: Laparoscopic repair recurrent left inguinal hernia with the da Esau robot assistance with mesh SURGEON: Fiordaliza EBL: Minimal ANESTHESIA: General COMPLICATIONS: None OPERATIVE PROCEDURE: Patient was placed in the operating table in the supine position. The patient was placed under general anesthesia. The abdomen was prepped and draped in usual sterile fashion. A small curvilinear supraumbilical incision was made. The fascia was retracted anteriorly with Seymour forceps. The Veress needle was inserted. The saline drop test was normal. Insufflation took place to 15 mmHg. A 5 mm trocar was placed into the peritoneal cavity. This was later switched to a 12 mm trocar. 2 additional 8 mm trochars were placed in the right upper quadrant and left upper quadrant under visualization. The robotic arms were then brought in and docked into place. The fenestrated bipolar was used in the left arm and the laparoscopic francis was utilized in the right arm. A 30 12 mm scope was used in the up position. The peritoneal cavity was inspected. The patient had no visible hernia on the right side. There was evidence of recurrent hernia on the left. This was a large indirect hernia. There was evidence of scarring from the previous surgery with sutures present. The peritoneum was incised in a horizontal fashion cephalad to the internal inguinal ring. Following that careful dissection of the preperitoneal space took place. This took place using both electrocautery, sharp dissection but primarily blunt dissection. Visualization of the pubic tubercle and Duncan's ligament took place medially. Full dissection took place laterally as well. The hernia sac was fully dissected. Once we had adequate space the 15 x 10 progrip mesh was advanced into the preperitoneal space and flattened out appropriately to cover all potential hernia sites. No sutures were used. The peritoneal defect was then closed using a locking 2-0 VLok suture. The hernia sac was incorporated into the peritoneal closure to prevent recurrence. The pneumoperitoneum was then evacuated. The fascia at the 12 mm site was closed using the Alen Cruz technique and an 0 Vicryl stitch. The skin of all 3 sites was closed using a 4-0 Monocryl stitch. Skin glue was then applied. DISPOSITION: Stable to recovery room
[2019-02-22] MEDS ORDERED: KETOROLAC 30 MG/ML 1 ML VIAL IVP ONE (12:23)
[2019-02-22 12:29] VITALS: TEMP 97.6
[2019-02-22 14:19] VITALS: BP 129/77; PULSE 64; RESP 20
[2019-02-22] MEDS ORDERED: SCOPOLAMINE 1.5MG/72HR PATCH TRANSDERM ONE (14:20)
[2019-02-22] MEDS ORDERED: PROMETHAZINE INJ 25 MG/ML 1 ML VIAL IVPB ONE (14:20)
== END 2019-02-22 15:46 | disposition home or self-care (01) ==
LOC: OR 07:30
PROVIDERS: ATTEND Surgery
DX: K40.91 Unilateral inguinal hernia, without obstruction or gangrene, recurrent (principal); J45.909 Unspecified asthma, uncomplicated; K21.9 Gastro-esophageal reflux disease without esophagitis; E07.9 Disorder of thyroid, unspecified; Z79.1 Long term (current) use of non-steroidal anti-inflammatories (NSAID); Z79.82 Long term (current) use of aspirin; Z79.899 Other long term (current) drug therapy; Z79.890 Hormone replacement therapy; Z90.49 Acquired absence of other specified parts of digestive tract
CPT/HCPCS: 49651; C1781; J2250; J1644; J1100; J2550; J2710; J2405; J2001; J3010; J1885; J1170 ×2; J0330; J2704; J0690

== ENCOUNTER 2022-03-24 08:31 | Day surgery (SDC) | payer MEDICAID ==
[2022-03-20 15:05] VITALS: BMI 27.3
[~2022-03-24 08:31] MED LIST changes: -DEXAMETHASONE SOD PHOSPHATE 10 MG/ML 1 ML VIAL IV ONE; -HEPARIN SODIUM,PORCINE 5,000 UNIT/ML 1 ML VIAL SQ ONE; -HYDROmorphone 0.5 MG/0.5 ML SYRINGE IVP PRN; +LIDOCAINE 1% (10MG/ML) FOR IV START INTRADERMA PRN; -LIDOCAINE 1% 20 ML VIAL (10MG/ML) FOR IV START INTRADERMA PRN; -ceFAZolin IN SWFI 2 GM/20 ML SYRINGE IVP ONE
[2022-03-24 09:30] VITALS: RESP 16; TEMP 97.6
[2022-03-24] MEDS ORDERED: PROPOFOL 10 MG/ML 20 ML VIAL IV ONE (09:53)
--- NOTE | 2022-03-24 09:57 | P.GSHP ---
History of Present Illness H&P Date: 03/24/22 Chief Complaint: Diverticulitis 56-year-old male known to our service. Underwent sigmoid colectomy laparoscopically 5 years ago for diverticulitis. Doing well recently. Family history of colon cancer in his grandfather. No history of polyps. Past Medical History Past Medical History: Asthma, GERD/Reflux, Skin Disorder, Thyroid Disorder Additional Past Medical History / Comment(s): Hernia-left inguinal. Diverticulitis-PELVIC ABCESS resolved. PALMS OF HANDS DRY, FLAKING. History of Any Multi-Drug Resistant Organisms: None Reported Past Surgical History: Bowel Resection, Hernia Repair Additional Past Surgical History / Comment(s): Double hernia at . Sinus surgery in 2000. COLONOSCOPY, laparoscopic sigmoid colectomy 2017. Past Anesthesia/Blood Transfusion Reactions: Previous Problems w/ Anesthesia Additional Past Anesthesia/Blood Transfusion Reaction / Comment(s): Took a long time to wake up with nasal surgery and colectomy Smoking Status: Never smoker - Past Family History Father Family Medical History: Cancer Mother Family Medical History: No Reported History Brother(s) Family Medical History: No Reported History Sister(s) Family Medical History: No Reported History Medications and Allergies Home Medications Medication Instructions Recorded Confirmed Type Budesonide-Formot 160-4.5 Mcg 2 puff INHALATION BID 09/28/16 03/24/22 History [Symbicort 160-4.5 Mcg Inhaler] Acetaminophen [Tylenol] 1,000 mg PO Q4-6H PRN 10/19/16 03/24/22 History Multivitamin [Men's Multi-Vitamin] 1 tab PO DAILY 12/22/16 03/24/22 History Omeprazole [PriLOSEC] 20 mg PO AC-BRKFST PRN 12/22/16 03/24/22 History Albuterol Sulfate [Proair Hfa] 1 - 2 puff INHALATION Q6HR PRN 02/16/19 03/24/22 History Atorvastatin [Lipitor] 40 mg PO DAILY 02/16/19 03/24/22 History Levothyroxine Sodium [Synthroid] 25 mcg PO DAILY 02/16/19 03/24/22 History Allergies Allergy/AdvReac Type Severity Reaction Status Date / Time No Known Allergies Allergy Verified 03/24/22 09:31 Surgical - Exam Vital Signs Temp Pulse Resp BP 97.6 F 67 16 126/72 03/24/22 09:27 03/24/22 09:27 03/24/22 09:27 03/24/22 09:27 Physical exam: General: Well-developed, well-nourished HEENT: Normocephalic, sclerae nonicteric Abdomen: Nontender, nondistended Extremities: No edema Neuro: Alert and oriented Assessment and Plan (1) Diverticulitis Narrative/Plan: Will proceed with colonoscopy at this time. Current Visit: No Status: Acute Code(s): K57.92 - DVTRCLI OF INTEST, PART UNSP, W/O PERF OR ABSCESS W/O BLEED SNOMED Code(s): 068076442
--- NOTE | 2022-03-24 10:09 | P.PCN ---
Date of Procedure: 03/24/22 Procedure(s) Performed: PREOPERATIVE DIAGNOSIS: Diverticulitis POSTOPERATIVE DIAGNOSIS: Ascending colon polyp PROCEDURE: Colonoscopy with snare polypectomy ANESTHESIA: MAC SURGEON: Cesar Mancera M.D. SPECIMENS: Polyp ENDOSCOPIC PROCEDURE: The patient was placed on the endoscopy table in the left decubitus position. The Olympus colonoscope was inserted into the anus and passed under direct visualization to the base of the cecum. The appendiceal orifice was visualized. From that point the scope was slowly withdrawn inspecting all surfaces carefully. There were no neoplastic inflammatory or polypoid lesions throughout the cecum. In the ascending colon there was a small polyp seen and removed using the snare with cautery technique. The remainder of the transverse descending and rectum appeared normal. The previous colorectal anastomosis was widely patent. There is no visible diverticulosis. Digital rectal examination was normal. The patient was taken to the recovery room in stable condition per anesthesia guidelines. RECOMMENDATIONS: Await biopsy results. Repeat colonoscopy 5 years.
[2022-03-24 10:27] VITALS: BP 109/66; PULSE 61
== END 2022-03-24 10:51 | disposition home or self-care (01) ==
LOC: ORWHC2ENDO 08:31
PROVIDERS: ATTEND Surgery
DX: D12.2 Benign neoplasm of ascending colon (principal); Z80.0 Family history of malignant neoplasm of digestive organs; J45.909 Unspecified asthma, uncomplicated; E07.9 Disorder of thyroid, unspecified; K21.9 Gastro-esophageal reflux disease without esophagitis; Z87.19 Personal history of other diseases of the digestive system; Z90.49 Acquired absence of other specified parts of digestive tract; Z79.51 Long term (current) use of inhaled steroids; Z79.899 Other long term (current) drug therapy; Z79.890 Hormone replacement therapy
CPT/HCPCS: 88305; 45385; J2704

== ENCOUNTER → 2022-07-08 | Outpatient (CLI) | payer OTHER ==
--- NOTE | 2022-07-08 14:49 | XR ---
EXAMINATION TYPE: XR forearm LT DATE OF EXAM: 07/08/2022 CLINICAL HISTORY: Contusion injury with pain TECHNIQUE: Two views of the left forearm are obtained. COMPARISON: None. FINDINGS: There is no acute fracture or dislocation seen in the left radius or ulna. The left elbow and wrist joints appear within normal limits. The overlying soft tissue appears within normal limit s. IMPRESSION: There is no acute fracture or dislocation seen in the left radius or ulna.
== END | disposition home or self-care (01) ==
LOC: RADXRMAIN 14:31
PROVIDERS: ATTEND Emergency Medicine
DX: S50.12XA Contusion of left forearm, initial encounter (principal)

== ENCOUNTER → 2023-12-21 | Outpatient (CLI) | payer MEDICAID ==
--- NOTE | 2023-12-23 08:09 | XR ---
EXAMINATION TYPE: XR chest 2V DATE OF EXAM: 12/21/2023 COMPARISON: 11/15/2017 HISTORY: Shortness of breath TECHNIQUE: Frontal and lateral views of the chest are obtained. FINDINGS: Scattered senescent parenchymal changes noted. Hyperinflation compatible with COPD. No evidence for infiltrate. No evidence for atelectasis. Heart size is stable. Mediastinal structures are stable and grossly unremarkable. No evidence for hilar prominence. Degenerative changes dorsal spine. IMPRESSION: 1. No evidence for acute pulmonary disease.
== END | disposition home or self-care (01) ==
LOC: RADXRMAIN 17:14
PROVIDERS: ATTEND Internal Medicine
DX: J06.9 Acute upper respiratory infection, unspecified (principal)
CPT/HCPCS: 71046

== ENCOUNTER → 2024-11-24 | Outpatient (CLI) | payer MEDICAID ==
[2024-11-24 15:04] LABS: Reticulocyte % 2.47 % (0.10-1.80)
[2024-11-24 15:32] LABS: Protein, Total 6.7 g/dL (6.2-8.2)
[2024-11-24 15:49] LABS: % Iron Saturation 33.8 (15.00-50.00); Total Protein 6.9 g/dL (6.2-8.2)
== END | disposition home or self-care (01) ==
LOC: LABWHC1 10:28
PROVIDERS: ATTEND Internal Medicine
DX: D64.9 Anemia, unspecified (principal)
CPT/HCPCS: 36415; 82525; 82607; 82728; 82746; 83010; 83540; 83550; 83615; 83883; 84155; 84156; 84165; 84166; 85045

== ENCOUNTER → 2024-12-04 | Outpatient (CLI) | payer MEDICAID ==
--- NOTE | 2024-12-04 13:39 | NM ---
EXAMINATION TYPE: NM stress cardiolite complete DATE OF EXAM: 12/04/2024 COMPARISON: NONE CLINICAL INDICATION: Male, 59 years old with history of R00.2 PALPITATIONS; history of hypertension a nd hypercholesterolemia along with asthma TECHNIQUE: After the intravenous administration of 10.21 mCi Tc 99m Sestamibi - Rest images obtained 43 minutes post injection. The patient exercised using a RAÚL protocol and 1 minute prior to peak exercise was injected with 24.6 mCi Tc 99m Sestamibi - Stress images obtained 24 minutes post inject ion. FINDINGS: Targeted heart rate was achieved during performance of the study. Review of stress and rest SPECT sydney ges demonstrates no distinct perfusion abnormality. Gated analysis shows normal wall motion with an estimated left ventricular ejection fraction of 68 %. IMPRESSION: No scintigraphic evidence for reversible ischemia [facility] Darya Martínez, , 12/04/2024 1:36 PM
--- NOTE | 2024-12-04 14:07 | CA ---
Exercise Stress Test Report Name: Yehuda Page Exam Date: 12/04/2024 11:53 Exam Location: [place] Stress Ht (in): 68 Wt (lb): 180 BSA: 1.95 Ordering Phys: Yanely Bryant MD Referring Phys: MAR Technologist: Shahbaz Campbell Age: 59 Gender: M : 1965 Procedure CPT: Indications: R00.2 palpitations ICD-10 Codes: Patient History: PALPITATIONS, HYPERCHOLESTEROLEMIA, HTN, ASTHMA Medications: Meds past 24 hrs: Pretest Chest Pain: STRESS TEST Andres Protocol Exercise Duration (min:sec): 06:[address] Depressions (mm): Angina Score: Tay Score: Resting HR (bpm): 74 Peak HR (bpm): 139 Resting BP (mmHg): 118 / 75 Peak BP (mmHg): 170 / 85 MPHR: 161 Target HR: 137 % MPHR: 86 METS: 8.0 Total Dose: Peak Dose: Atropine: Double Product: 04240 BP Response: Stress Termination: TARGET HR/MAX EXERTION Stress Symptoms: NO SYMPTOMS Stress Summary: ECG ANALYSIS Resting ECG: Stress ECG: CONCLUSIONS Normal stress test Dr. Wayne Haddad MD (Electronically Signed) Final Date: 04 December 2024 14:06
== END | disposition home or self-care (01) ==
LOC: RADNMMAIN 08:56
PROVIDERS: ATTEND Internal Medicine
DX: R00.2 Palpitations (principal); I10 Essential (primary) hypertension; E78.00 Pure hypercholesterolemia, unspecified; J45.909 Unspecified asthma, uncomplicated
CPT/HCPCS: 93017; 78452; A9500